=== PATIENT | female | born 1940 | race Caucasian/White ===

== ENCOUNTER 2023-09-07 09:15 | Outpatient (CLI) | payer MEDICARE, SELFPAY ==
[2023-09-07 18:27] LABS: Basophils Percent Auto 0.1 % (0.2-1.2); Hematocrit 39.4 % (37.0-47.0); Immature Granulocyte Absolute 0.06 K/mm3 (0.00-0.031); Immature Granulocyte Percent A 0.7 % (0-0.5); Lymphocytes Absolute Auto 2.05 K/mm3 (0.9-3.2); Lymphocytes Percent Auto 24.8 % (18.3-44.2); Mean Corpuscular HGB Conc 30.5 g/dl (32-36); Mean Corpuscular Hemoglobin 29.9 pg (26-34); Mean Platelet Volume 9.3 fl (7.4-10.4); Monocytes Absolute Auto 0.7 K/mm3 (0.1-0.6); Monocytes Percent Auto 8.2 % (2.6-8.5); Neutrophils Absolute Auto 5.5 K/mm3 (1.3-6.7); Neutrophils Percent Auto 66.2 % (45.5-73.1); Platelet Count Result 321 k/mm3 (150-375); Red Blood Count 4.02 M/mm3 (4.2-5.4); Red Cell Distribution Width 13.9 % (11.5-14.5); White Blood Count 8.3 K/mm3 (4.5-10.0)
[2023-09-07 18:34] LABS: Anion Gap 11 mmol/L (8-16); Blood Urea Nitrogen 31 mg/dL (7-17); Calcium 9.8 mg/dL (8.4-10.2); Carbon Dioxide 26 mmol/L (22-30); Chloride 105 mmol/L (98-107); Estimated Glomerular Filt Rate 60; Glucose 81 mg/dL (65-110); Potassium 4.5 mmol/L (3.4-5.0); Sodium 142 mmol/L (137-145)
[2023-09-07 19:30] LABS: Folic Acid 6.2 ng/mL (2.76->20)
== END 2023-09-07 09:16 | disposition home or self-care (01) ==
LOC: ANHGOSHLAB 09:18
PROVIDERS: PCP Internal Medicine; Visit Provider Internal Medicine Hematology & Oncology
DX: D64.9 Anemia, unspecified (principal)
CPT/HCPCS: 36415; 80048; 82607; 82746; 85025

== ENCOUNTER 2025-06-28 09:11 | Outpatient (CLI) | payer MEDICARE, SELFPAY ==
--- OUTSIDE RECORDS SUMMARY | 2024-11-29 10:15 | XMS_ITS ---
Author Organization [facility] Office Address [address] [facility] 61 [facility] [address] [place] [address] Care Team Providers Care Tool Mechanic Name Role Phone Antoni Shukri Unavailable [phone] Social History Sex Assigned At : Social History Observation Description Sex Assigned At Female Encounters Encounter Location Date Provider Diagnosis [place] [facility] 2043 [facility] 15 [place] [address] 11/29/2024 Shukri Corrales Plan Of Treatment Next Appt Details Provider Name:Shukri Corrales , 08/15/2025 02:00:00 PM, [address] [address], [place], [place], [facility], Progress Notes * Mandi MEEHANOB:1940 (85 yo F)Acc No.[id number]:11/29/2024 Progress Notes Patient: Qamar GALLOWAY Provider: Lora ESPAÑA MD, Deepak.Bette.C.P, F.A.S.N. :1940 A ge:84 Y S ex:Female Date:11/29/2024 Address:[address] [place] [address] Subjective: * Chief Complaints: * * Medical History: Objective: * Vitals: Assessment: Plan: * Treatment: * Billing Information: * Visit Code: * Procedure Codes: * Electronic signature of Callum Corrales MD on 06/28/2025 at 09:30 AM CDT Sign off status: Pending * Provider: Lora ESPAÑA MD, Deepak.Bette.C.P, F.A.S.N. Date: 0 11/29/2024 Generated for Printing/Faxing/eTransmitting on: 0 06/28/2025 09:30 AM CDT
--- OUTSIDE RECORDS SUMMARY | 2025-01-19 10:45 | XMS_ITS ---
Author Organization [facility] Office Address [address] [place] [address] Care Team Providers Care Interior Systems Carpenter Name Role Phone Antoni Shukri Unavailable [phone] Social History Sex Assigned At : Social History Observation Description Sex Assigned At Female Problems Problem Type SNOMED Code ICD Code Onset Dates Problem Status W/U Status Risk Notes Problem Edema (03801040) Edema, unspecified (R60.9) Active confirmed Problem Major depression, single episode (10664073) Major depressive disorder, single episode, unspecified (F32.9) Active confirmed Problem Heart murmur (finding) (81475833) Cardiac murmur, unspecified (R01.1) Active confirmed Encounters Encounter Location Date Provider Diagnosis [place] [facility] 2043 [facility] 15 [place] [address] 01/19/2025 Shukri Corrales Chronic kidney disea se, stage 3a N18.31 ; Type 2 diabetes mellitus with diabetic chronic kidney disease E11.22 ; Essential hypertension I10 ; Gastro-esophageal reflux disease without esophagitis K21.9 ; Hyperlipidemia, unspecified E78.5 ; Renal osteodystrophy N25.0 ; Secondary hyperparathyroidism of renal origin N25.81 ; Edema, unspecified R60.9 ; Major depressive disorder, single episode, unspecified F32.9 and Cardiac murmur, unspecified R01.1 Assessments Encounter Date Diagnosis (ICD Code) Assessment Notes Treatment Notes Treatment Clinical Notes Section Notes 01/19/2025 Chronic kidney disea se, stage 3a (ICD-10 - N18.31) 01/19/2025 Type 2 diabetes mellitus with diabetic chronic kidney disease (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) 01/19/2025 Essential hypertensi on (ICD-10 - I10) 01/19/2025 Gastro-esophageal reflux disease without esophagitis (ICD-10 - K21.9) 01/19/2025 Hyperlipidemia, unspecified (ICD-10 - E78.5) 01/19/2025 Renal osteodystrophy (ICD-10 - N25.0) 01/19/2025 Secondary hyperparathyroidism of renal origin (ICD-10 - N25.81) 01/19/2025 Edema, unspecified (ICD-10 - R60.9) 01/19/2025 Major depressive disorder, single episode, unspecified (ICD-10 - F32.9) 01/19/2025 Cardiac murmur, unspecified (ICD-10 - R01.1) Plan Of Treatment Next Appt Details Provider Name:Shukri Antoni , 08/15/2025 02:00:00 PM, 2043 [facility] 15, [place], [address], Progress Notes * Mandi CABRERAOB:1940 (85 yo F)Acc No.[id number]:01/19/2025 Progress Notes Patient: Qamar GALLOWAY Provider: Lora ESPAÑA MD, F.A.C.P, F.A.S.N. :1940 A ge:84 Y S ex:Female Date:01/19/2025 Address:[address] [place] [address] Subjective: * Chief Complaints: * * Medical History: Objective: * Vitals: Assessment: * Assessment: 1. C hronic kidney disease, stage 3a - N18.31 (Primary) 2 . 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 E ssential hypertension - I10 4 . G khushbu-esophageal reflux disease without esophagitis - K21.9 5. H yperlipidemia, unspecified - E78.5 6 . R enal osteodystrophy - N25.0 7 . S econdary hyperparathyroidism of renal origin - N25.81 ? 8 . E david, unspecified - R60.9 9 . M ajor depressive disorder, single episode, unspecified - F32.9 1 0. C ardiac murmur, unspecified - R01.1 ? Plan: * Treatment: * Billing Information: * Visit Code: 78801 Office Visit, Est Pt., Level 4. * Procedure Codes: * Electronic signature of Callum Corrales MD on 06/28/2025 at 09:29 AM CDT Sign off status: Pending * Provider: Lora ESPAÑA MD, F.A.C.P, F.A.S.N. Date: 0 01/19/2025 Generated for Printing/Faxing/eTransmitting on: 0 06/28/2025 09:29 AM CDT
--- OUTSIDE RECORDS SUMMARY | 2025-03-23 08:30 | XMS_ITS ---
Author Organization [facility] Office Address [address] [address] [place] [address] Care Team Providers Care Manager Heart Name Role Phone Antoni Shukri Unavailable [phone] Social History Sex Assigned At : Social History Observation Description Sex Assigned At Female Encounters Encounter Location Date Provider Diagnosis [place] [facility] [address] [facility] 15 [place] [address] 03/23/2025 Shukri Corrales Chronic kidney disea se, stage [...] Treatment Notes Treatment Clinical Notes Section Notes 03/23/2025 Chronic kidney disea se, stage 3a (ICD-10 - N18.31) 03/23/2025 Type 2 diabetes mellitus with diabetic chronic kidney disease (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) 03/23/2025 Essential hypertensi on (ICD-10 - I10) 03/23/2025 Gastro-esophageal reflux disease without esophagitis (ICD-10 - K21.9) 03/23/2025 Hyperlipidemia, unspecified (ICD-10 - E78.5) 03/23/2025 Renal osteodystrophy (ICD-10 - N25.0) 03/23/2025 Secondary hyperparathyroidism of renal origin (ICD-10 - N25.81) 03/23/2025 Edema, unspecified (ICD-10 - R60.9) 03/23/2025 Major depressive disorder, single episode, unspecified (ICD-10 - F32.9) 03/23/2025 Cardiac murmur, unspecified (ICD-10 - R01.1) Plan Of Treatment Next Appt Details Provider Name:Shukri Antoni , 08/15/2025 02:00:00 PM, 2043 [facility], [facility] 15, [place], [address], Progress Notes * Mandi CABRERAOB:1940 (85 yo F)Acc No.[id number]:03/23/2025 Progress Notes Patient: Qamar GALLOWAY Provider: Lora ESPAÑA MD, F.A.C.P, F.A.S.N. :1940 A ge:84 Y S ex:Female Date:03/23/2025 Address:[address] [place] [address] Subjective: * Chief Complaints: * * Medical [...] Treatment: * Billing Information: * Visit Code: 96825 Office Visit, Est Pt., Level 4. * Procedure Codes: * Electronic signature of Callum Corrales MD on 06/28/2025 at 09:30 AM CDT Sign off status: Pending * Provider: Lora ESPAÑA MD, Deepak.Bette.C.P, F.A.S.N. Date: 03/23/2025 Generated for Printing/Faxing/eTransmitting on: 0 06/28/2025 09:30 AM CDT
--- OUTSIDE RECORDS SUMMARY | 2025-05-22 09:45 | XMS_ITS ---
Author Organization [facility] Office Address 1400 [facility] 61 [facility] [address] [place] [address] Care Team Providers Care Core Java Software Engineer Name Role Phone Antoni Shukri Unavailable [phone] Social History Sex Assigned At : Social History Observation Description Sex Assigned At Female Encounters Encounter Location Date Provider Diagnosis [place] [facility] 2043 [facility] 15 [place] [address] 05/22/2025 Shukri Corrales Plan Of Treatment Next Appt Details Provider Name:Shukri Corrales , 08/15/2025 02:00:00 PM, [address] [address], [place], [address], Progress Notes * Mandi MEEHANOB:1940 (85 yo F)Acc No.[id number]:05/22/2025 Progress Notes Patient: Qamar GALLOWAY Provider: Lora ESPAÑA MD, Deepak.Bette.C.P, F.A.S.N. :1940 A ge:84 Y S ex:Female Date:05/22/2025 Address:[address] [place] [address] Subjective: * Chief Complaints: * * Medical History: Objective: * Vitals: Assessment: Plan: * Treatment: * Billing Information: * Visit Code: * Procedure Codes: * Electronic signature of Callum Corrales MD on 06/28/2025 at 09:30 AM CDT Sign off status: Pending * Provider: Lora ESPAÑA MD, Deepak.Bette.C.P, F.A.S.N. Date: 0 05/22/2025 Generated for Printing/Faxing/eTransmitting on: 0 06/28/2025 09:30 AM CDT
--- OUTSIDE RECORDS SUMMARY | 2025-05-23 09:00 | XMS_ITS ---
Author Organization [facility] Address [address] [address] [place] [address] Care Team Providers Care Crystallizer Operator Name Role Phone Antoni Shukri Unavailable [phone] Social History Sex Assigned At : Social History Observation Description Sex Assigned At Female Encounters Encounter Location Date Provider Diagnosis [place] [facility] 2043 [facility] 15 [place] [address] 05/23/2025 Shukri Corrales Chronic kidney disea se, stage [...] Treatment Notes Treatment Clinical Notes Section Notes 05/23/2025 Chronic kidney disea se, stage 3a (ICD-10 - N18.31) 05/23/2025 Type 2 diabetes mellitus with diabetic chronic kidney disease (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) 05/23/2025 Essential hypertensi on (ICD-10 - I10) 05/23/2025 Gastro-esophageal reflux disease without esophagitis (ICD-10 - K21.9) 05/23/2025 Hyperlipidemia, unspecified (ICD-10 - E78.5) 05/23/2025 Renal osteodystrophy (ICD-10 - N25.0) 05/23/2025 Secondary hyperparathyroidism of renal origin (ICD-10 - N25.81) 05/23/2025 Edema, unspecified (ICD-10 - R60.9) 05/23/2025 Major depressive disorder, single episode, unspecified (ICD-10 - F32.9) 05/23/2025 Cardiac murmur, unspecified (ICD-10 - R01.1) Plan Of Treatment Next Appt Details Provider Name:Shukri Antoni , 08/15/2025 02:00:00 PM, 2043 [facility], [facility] 15, [place], [address], Progress Notes * Mandi CABRERAOB:1940 (85 yo F)Acc No.[id number]:05/23/2025 Progress Notes Patient: Qamar GALLOWAY Provider: Lora ESPAÑA MD, F.A.C.P, F.A.S.N. :1940 A ge:84 Y S ex:Female Date:05/23/2025 Address:[address] [place] [address] Subjective: * Chief Complaints: * * Medical [...] Treatment: * Billing Information: * Visit Code: 42296 Office Visit, Est Pt., Level 4. * Procedure Codes: * Electronic signature of Callum Corrales MD on 06/28/2025 at 09:30 AM CDT Sign off status: Pending * Provider: Lora ESPAÑA MD, Deepak.Bette.C.P, F.A.S.N. Date: 05/23/2025 Generated for Printing/Faxing/eTransmitting on: 0 06/28/2025 09:30 AM CDT
--- NOTE | ~2025-06-28 | NM_ITS ---
EXAMINATION: NM edelmira stress w perfusion DATE: 06/28/2025 12:04 INDICATION: Encounter for preprocedural cardiovascular examination TECHNIQUE: Rest images were obtained following intravenous administration of 10.07 mCi Tc99m tetrofosmin (Myoview). The patient was infused intravenously with Lexiscan (Regadenoson). Then, 31.7 mCi Tc99m tetrofosmin (Myoview) was administered intravenously, and stress images were obtained. Data was rec onstructed into short axis and horizontal and vertical long axis SPECT images. Gated SPECT images were also obtained. COMPARISON: None. FINDINGS: There is no definite reversible or fixed perfusion abnormality to suggest ischemia or infarction. There is normal left ventricular chamber size, wall motion and ejection fraction. Left ventricular ejection fraction measures >70%. IMPRESSION: 1. Normal myocardial perfusion at rest and during stress. 2. Left ventricular ejection fraction measuring >70%. Reviewed, dictated and finalized at location A.
--- NOTE | 2025-06-28 09:24 | EST_ITS ---
Patient Info Name: Qamar Meehan Age: 85 years : 1940 Gender: Female Ht: 63 in Wt: 139 lbs BSA: 1.68 m2 HR: 56 bpm BP: 135 / 67 mmHg Exam Date: 06/28/2025 9:24 AM Patient Status: O Admit Date: 06/28/2025 Exam Type: CA stress edelmira w NM A regadenoson stress test was performed. Staff Referring Physician: Ajith Mann DO Attending Provider: Ajith Mann DO Exercise Technologist: Amina Smith Exercise Physician: Ajith Mann DO Summary 1. 1. Negative lexiscan stress test for ischemic ST changes by ECG criteria. 2. 2. Stable hemodynamics throughout the test. 3. 3. Nuclear scan to follow and will be reported separately. Please correlate with it. 4. 4. Patient informed of the above results. Protocol: Lexiscan Stress ECG Details Stage: REST Duration (min): 0 min : 52 sec HR (bpm): 58 SBP (mmHg): 135 DBP (mmHg): 67 Stage: REST Duration (min): 6 min : 51 sec HR (bpm): 61 SBP (mmHg): 135 DBP (mmHg): 67 Stage: STAGE 1 Duration (min): 1 min : 0 sec HR (bpm): 79 SBP (mmHg): 116 DBP (mmHg): 66 Stage: RECOVERY Duration (min): 1 min : 0 sec HR (bpm): 87 SBP (mmHg): 116 DBP (mmHg): 66 Stage: RECOVERY Duration (min): 2 min : 0 sec HR (bpm): 76 SBP (mmHg): 116 DBP (mmHg): 66 Stage: RECOVERY Duration (min): 3 min : 0 sec HR (bpm): 81 SBP (mmHg): 116 DBP (mmHg): 66 Stage: RECOVERY Duration (min): 4 min : 0 sec HR (bpm): 76 SBP (mmHg): 116 DBP (mmHg): 66 Stage: RECOVERY Duration (min): 5 min : 0 sec HR (bpm): 75 SBP (mmHg): 142 DBP (mmHg): 60 Stage: RECOVERY Duration (min): 6 min : 0 sec HR (bpm): 72 SBP (mmHg): 142 DBP (mmHg): 60 Stage: RECOVERY Duration (min): 7 min : 0 sec HR (bpm): 76 SBP (mmHg): 140 DBP (mmHg): 58 Stage: RECOVERY Duration (min): 7 min : 3 sec HR (bpm): 75 SBP (mmHg): 140 DBP (mmHg): 58 Rest HR: 61 bpm Peak HR: 90 bpm Rest Sys BP: 135 mmHg Peak Sys BP: 142 mmHg Max Pred HR: 137 bpm % Max Pred HR: 66 % Target HR: 116 bpm Max RPP: 12,780 bpm*mmHg Termination Reason: Completed protocol Cardiac Symptoms: Shortness of breath, Nausea Total Time: 1 min : 0 sec Rest Negron BP: 67 mmHg Peak Negron BP: 60 mmHg Total Dose: 0.4 mg Resting ECG Sinus rhythm. Stress ECG No ST changes. Arrhythmias None. Report Signatures
--- OUTSIDE RECORDS SUMMARY | 2025-06-28 09:30 | XMS_ITS | Clinical Summary ---
Author Organization [facility] Address [address] [place] [address] Care Team Providers Care New Car Sales Manager Name Role Phone Beulah Johnson MD Primary Care Provide r Allergies Active Allergy Reactions Criticality Noted Date Comments Losartan Other (See comments) Low 02/02/2023 Sores in mouth Medications busPIRone (BUSPAR) 15 mg tabletIndicatio ns:Generalized Anxiety Disorder 05/02/2018 Active furosemide (LASIX) 20 mg tablet 05/04/2018 Active levothyroxine (SYNTHROID, LEVOTHROID) 50 mcg tablet 05/02/2018 Active lisinopril-hydr oCHLOROthiazide (PRINZIDE,ZESTO RETIC) 20-12.5 mg per tabletIndicatio ns:hypertension 05/03/2018 Act lisandro naproxen (NAPROSYN) 375 mg tablet 04/06/2018 Active BYSTOLIC 20 mg tablet 04/05/2018 Active lidocaine (LIDODERM) 5 % Place 1 patch on the skin daily for 7 days Remove & discard patch within 12 hours or as directed by MD. 7 patch 08/13/2023 Active acetaminophen (TYLENOL) 325 mg tablet Take 1 tablet (325 mg total) by mouth every 4 (four) hours as needed Active amLODIPine (NORVASC) 10 mg tablet Take 1 tablet (10 mg total) by mouth daily Active calcitRIOL (ROCALTROL) 0.25 mcg capsule Take by mouth daily Active ergocalciferol (VITAMIN D) 50,000 unit capsule Take 1 capsule (50,000 Units total) by mouth once a week Active escitalopram (LEXAPRO) 10 mg tablet Take 1 tablet (10 mg total) by mouth daily Active ferrous sulfate 134 mg (27 mg of elemental iron) tablet Take 1 tablet (134 mg total) by mouth Active LORazepam (ATIVAN) 1 mg tablet Take 1 tablet (1 mg total) by mouth daily Active losartan (Cozaar) 100 mg tablet daily 11/05/2022 Active losartan (COZAAR) 50 mg tablet Take 1 tablet (50 mg total) by mouth daily Active meloxicam (MOBIC) 7.5 mg tablet Take 1 tablet (7.5 mg total) by mouth daily as needed 02/14/2024 Active Lagevrio, EUA, 200 mg capsule (EUA) TAKE 4 CAPSULES BY MOUTH EVERY 12 HOURS FOR 5 DAYS 03/16/2024 Active omeprazole (PriLOSEC) 10 mg capsule Take by mouth daily Active rosuvastatin (CRESTOR) 40 mg tablet Take 1 tablet (40 mg total) by mouth daily 01/20/2024 Active Active Problems Problem Noted Date Diagnosed Date Diplopia 05/22/2024 Assessment & Plan (05/22/2024 11:09 AM CDT): I think some of her symptoms may be due to the cataract in the left eye (sx improve when covering left eye (OS)) No Ana's Known thyroid disease (managed with PCP) Moderate EP with low reserves, possible mild /early SES Outside MRI/MRA with and without contrast was normal Letter to PCP - recommend Myasthenia Panel and TSI Hypermetropia 05/22/2024 Assessment & Plan (05/22/2024 11:02 AM CDT): Release updated glasses Rx Combined forms of age-related cataract Assessment & Plan (05/22/2024 11:01 AM CDT): F/u with her local Tester Electronic Scale Essential hypertension 04/05/2024 Gastro-esophageal reflux disease without esophag itis 04/05/2024 Hyperlipidemia 04/05/2024 Stage 2 chronic kidney disease 04/05/2024 Sensorineural hearing loss, asymmetrical 018 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 Urge incontinence 03/23/2012 Surgical History Surgery Date Site/Laterality Comments NO PAST SURGERIES BREAST BIOPSY 09/14/2019 Left BREAST BIOPSY 12/08/2019 Right Medical History Medical History Date Comments Allergy seasonal Anxiety Hypertension HL (hearing loss) Tinnitus Family History Medical History Relation Name Comments Heart disease Father Heart disease Mother Relation Name Status Comments Father Mother Social History Tobacco Use Types Packs/Day Years Used Date Smoking Tobacco: Never Smokeless Tobacco: Never Tobacco Cessation:Counseling Given: Not Answered Personal Safety Answer Date Recorded Have you ever been in or are you currently in a harmful physical or emotional relationship or is someone making you feel afraid or unsafe? Denies 08/13/2023 Comments Unknown Sex and Gender Information Value Date Recorded Sex Assigned at Not on file Legal Sex Female 3:51 AM RETENTION REPRESENTATIVE Gender Identity Not on file Sexual Orientation Not on file Obstetrics History Last Filed Vital Signs Vital Sign Reading Time Taken Comments Blood Pressure 142/58 04/05/2024 10:58 AM CDT Pulse 78 04/05/2024 10:58 AM CDT Temperature 36.8 C (98.2 F) 08/13/2023 2:53 PM CDT Respiratory Rate 16 08/13/2023 2:53 PM CDT Oxygen Saturation 98% 04/05/2024 10:58 AM CDT Inhaled Oxygen Concentration - - Weight 63.5 kg (140 lb) 04/05/2024 10:58 AM CDT Height 160 cm (5' 3) 04/05/2024 10:58 AM CDT Body Mass Index 24.8 04/05/2024 10:58 AM CDT Plan of Treatment Health Maintenance Due Date Last Done Comments Depression Screening 1940 Fall Risk Assessment 1940 Osteoporosis Screening-Bone Density Scan 1940 DTaP/Tdap/Td Vaccine (1 - Tdap) 1953 Hepatitis B Screening 1960 Pneumococcal vaccine 65+ (1 of 1 - PCV) 1992 Zoster Vaccine (1 of 2) 1992 Well Visit 65+ 2007 Covid-19 Vaccine (3 - 2023- season) 2024, 11/14/2020 Influenza Vaccine (#1) 2025 Insurance MEDICARE [facility] MEDICARE [facility] Care Teams New Car Sales Manager Relationship Specialty Start Date End Date Beulah Johnson MD 2043 [facility] 15 [place] [address] PCP - General Internal Medicine 08/13/23
--- OUTSIDE RECORDS SUMMARY | 2025-06-28 09:30 | XMS_ITS | Patient Health Record ---
Author Organization [facility] Address [address] [facility] [address] [facility] [place] [address] [place] [address] Care Team Providers Care Merchandise Associate Name Role Phone Shukri Corrales Unavailable [phone] Reason For Referral No Information Medications Medication SIG (Take, Route, Frequency, Duration) Notes Start Date End Date Status Calcitriol 0.25 MCG TAKE 1 CAPSULE BY MO UTH EVERY DAY; Duration: 90 Active Furosemide 40 MG 1 tablet Orally twic e a day; Duration: 90 days 03/23/2025 03/18/2026 Active Losartan Potassium 50 MG TAKE 1 TABLET B Y MOUTH EVERY DAY; Duration: 90 days Active amLODIPine Besylate 10 MG TAKE 1 TABLET BY MOUTH EVERY DAY; Duration: 90 Active Cozaar 100 MG 1 tablet Orally Once a day; Duration: 90 days 11/05/2022 Active Losartan Potassium 100 MG 1 tablet Orall y Once a day; Duration: 90 days 01/19/2025 Active Lasix 20 MG 1 tablet Orally Once a day; Duration: 90 day(s) 01/19/2025 10/15/2025 Active Vitamin D (Ergocalciferol) 1.25 MG (73804 UT) 1 capsule Orally ONCE A WEEK; Duration: 90 days 01/14/2026 Active Social History Sex Assigned At : Social History Observation Description Sex Assigned At Female Problems Problem Type SNOMED Code ICD Code Onset Dates Problem Status W/U Status Risk Notes Problem Diabetic renal disease (899049008) Type 2 diabetes mellitus with diabetic chronic kidney disease (E11.22) Active confirmed Problem Hyperlipidemia (76602894) Hyperlipidemia, unspecified (E78.5) Active confirmed Problem Major depression, single episode (43532971) Major depressive disorder, single episode, unspecified (F32.9) Active confirmed Problem Gastro-esophageal reflux disease without esophagitis (761823676) Gastro-esophageal reflux disease without esophagitis (K21.9) Active confirmed Problem Renal osteodystrophy (17430807) Renal osteodystrophy (N25.0) Active confirmed Problem Secondary hyperparathyroidism of renal origin (93067608) 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) Active confirmed Problem Heart murmur (finding) (78836575) Cardiac murmur, unspecified (R01.1) Active confirmed Problem Edema (32895434) Edema, unspecif ied (R60.9) Active confirmed Problem Essential hypertension (22318161) Essential hypertension (I10) Active confirmed Problem Chronic kidney disease stage 3A (disorder) (734905161) Chronic kidney disease, stage 3a (N18.31) Active confirmed Encounters Encounter Location Date Provider Diagnosis [place] [facility] [address] [place] [address] 07/14/2024 Shukri [facility] Office [address] [address] 07/26/2024 Shukri Corrales Chronic kidney disea se, stage 3a N18.31 ; Essential hypertension I10 ; Renal osteodystrophy N25.0 ; Gastro-esophageal reflux disease without esophagitis K21.9 and Hyperlipidemia, unspecified E78.5 [place] [facility] [address] [address] 11/01/2024 Shukri [facility] Office [address] [place] [address] 11/24/2024 Shukri Corrales Chronic kidney disea se, stage 3a N18.31 ; Essential hypertension I10 ; Renal osteodystrophy N25.0 ; Type 2 diabetes mellitus with diabetic chronic kidney disease E11.22 ; Secondary hyperparathyroidism of renal origin N25.81 and Hyperlipidemia, unspecified E78.5 [place] [facility] [address] [address] 01/19/2025 Shukri Corrales Chronic kidney disea se, [...] unspecified F32.9 and Cardiac murmur, unspecified R01.1 [place] [facility] [address] [address] 03/23/2025 Shukri Corrales Chronic kidney disea se, [...] unspecified F32.9 and Cardiac murmur, unspecified R01.1 [place] [facility] [address] [address] 05/23/2025 Shukri Corrales Chronic kidney disea se, [...] unspecified F32.9 and Cardiac murmur, unspecified R01.1 [place] [facility] [address] [address] 10/16/2024 Shukri [facility] Office [address] [address] 11/02/2024 Shukri Corrales [place] [facility] [address] [address] 11/02/2024 Shukri [facility] Office [address] [address] 01/19/2025 Shukri [facility] Office [address] [address] 03/23/2025 Shukri Corrales [place] [facility] [address] [address] 07/11/2024 Shukri Corrales [place] [facility] [address] [address] 07/26/2024 Shukri Corrales [place] [facility] [address] [address] 09/15/2024 Shukri Corrales Assessments Encounter Date Diagnosis (ICD Code) Assessment Notes Treatment Notes Treatment Clinical Notes Section Notes 07/26/2024 Chronic kidney disea se, stage 3a (ICD-10 - N18.31) 01/19/2025 Chronic kidney disea se, stage 3a (ICD-10 - N18.31) 03/23/2025 Chronic kidney disea se, stage 3a (ICD-10 - N18.31) 05/23/2025 Chronic kidney disea se, stage 3a (ICD-10 - N18.31) 11/24/2024 Essential hypertensi on (ICD-10 - I10) 11/24/2024 Chronic kidney disea se, stage 3a (ICD-10 - N18.31) 11/24/2024 Renal osteodystrophy (ICD-10 - N25.0) 05/23/2025 Type 2 diabetes mellitus with diabetic chronic kidney disease (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) 03/23/2025 Type 2 diabetes mellitus with diabetic chronic kidney disease (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) 07/26/2024 Essential hypertensi on (ICD-10 - I10) 01/19/2025 Type 2 diabetes mellitus with diabetic chronic kidney disease (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) 07/26/2024 Renal osteodystrophy (ICD-10 - N25.0) 01/19/2025 Essential hypertensi on (ICD-10 - I10) 03/23/2025 Essential hypertensi on (ICD-10 - I10) 05/23/2025 Essential hypertensi on (ICD-10 - I10) 11/24/2024 Type 2 diabetes mellitus with diabetic chronic kidney disease (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) 11/24/2024 Secondary hyperparathyroidism of renal origin (ICD-10 - N25.81) 05/23/2025 Gastro-esophageal reflux disease without esophagitis (ICD-10 - K21.9) 03/23/2025 Gastro-esophageal reflux disease without esophagitis (ICD-10 - K21.9) 01/19/2025 Gastro-esophageal reflux disease without esophagitis (ICD-10 - K21.9) 07/26/2024 Gastro-esophageal reflux disease without esophagitis (ICD-10 - K21.9) 07/26/2024 Hyperlipidemia, unspecified (ICD-10 - E78.5) 01/19/2025 Hyperlipidemia, unspecified (ICD-10 - E78.5) 03/23/2025 Hyperlipidemia, unspecified (ICD-10 - E78.5) 05/23/2025 Hyperlipidemia, unspecified (ICD-10 - E78.5) 11/24/2024 Hyperlipidemia, unspecified (ICD-10 - E78.5) 03/23/2025 Renal osteodystrophy (ICD-10 - N25.0) 05/23/2025 Renal osteodystrophy (ICD-10 - N25.0) 01/19/2025 Renal osteodystrophy (ICD-10 - N25.0) 01/19/2025 Secondary hyperparathyroidism of renal origin (ICD-10 - N25.81) 05/23/2025 Secondary hyperparathyroidism of renal origin (ICD-10 - N25.81) 03/23/2025 Secondary hyperparathyroidism of renal origin (ICD-10 - N25.81) 05/23/2025 Edema, unspecified (ICD-10 - R60.9) 03/23/2025 Edema, unspecified (ICD-10 - R60.9) 01/19/2025 Edema, unspecified (ICD-10 - R60.9) 03/23/2025 Major depressive disorder, single episode, unspecified (ICD-10 - F32.9) 01/19/2025 Major depressive disorder, single episode, unspecified (ICD-10 - F32.9) 05/23/2025 Major depressive disorder, single episode, unspecified (ICD-10 - F32.9) 03/23/2025 Cardiac murmur, unspecified (ICD-10 - R01.1) 05/23/2025 Cardiac murmur, unspecified (ICD-10 - R01.1) 01/19/2025 Cardiac murmur, unspecified (ICD-10 - R01.1) Plan Of Treatment Next Appt Details Provider Name:Shukri Corrales , 08/15/2025 02:00:00 PM, [address], [place], [address],
--- OUTSIDE RECORDS SUMMARY | 2025-06-28 09:30 | XMS_ITS | Clinical Summary ---
Author Organization [facility] Desire Rodrigues Address [address] [place] [address] Care Team Providers Care Box Car Bracer Name Role Phone Stiven Johnson MD Primary Care Provider Allergies Active Allergy Reactions Criticality Noted Date Comments Losartan Other (See Comments) Low 02/02/2023 Sores in mouth Medications amLODIPine (NORVASC) 10 mg tablet Take 10 mg by mouth daily. 11/30/2022 Active busPIRone (BUSPAR) 15 mg Tablet 10/27/2022 Active calcitRIOL (ROCALTROL) 0.25 mcg capsule Take 0.25 mcg by mouth daily. 01/01/2023 Active ergocalciferol (VITAMIN D2) 50,000 unit capsule TAKE 1 CAPSULE BY MOUTH 1 TIME A WEEK 01/01/2023 Active escitalopram oxalate (LEXAPRO) 10 mg tablet Take 10 mg by mouth daily. 12/07/2022 Active levothyroxine 50 mcg tablet Take 50 mcg by mouth daily. 01/11/2023 Active LORazepam (ATIVAN) 1 mg tablet TAKE 1 TABLET BY MOUTH EVERY DAY NEEDED 12/31/2022 Active losartan (COZAAR) 100 mg tablet 11/05/2022 Active rosuvastatin (CRESTOR) 40 mg tablet Take 40 mg by mouth daily. 01/11/2023 Active omeprazole (PriLOSEC) 10 mg Capsule, Delayed Release(E.C.) Take by mouth daily. Active ferrous sulfate 134 mg (27 mg iron) Tablet Take 134 mg by mouth. Active acetaminophen (TYLENOL) 325 mg tablet Take 325 mg by mouth every 4 hours as needed. Active Active Problems No known active problems Family History Medical History Relation Name Comments Heart Disease Father Heart Disease Mother Relation Name Status Comments Father Mother Sister Alive Son 1 Alive Son 2 Alive Social History Tobacco Use Types Packs/Day Years Used Date Smoking Tobacco: Never Smokeless Tobacco: Never Tobacco Cessation:Counseling Given: Not Answered Alcohol Use Standard Drinks/Week Comments Not Currently 0 (1 standard drink = 0.6 oz pur e alcohol) Comments Unknown Sex and Gender Information Value Date Recorded Sex Assigned at Not on file Legal Sex Female 4:04 PM TRUST MANAGER Gender Identity Not on file Sexual Orientation Not on file Last Filed Vital Signs Vital Sign Reading Time Taken Comments Blood Pressure 136/56 09/09/2023 2:28 PM TRUST MANAGER Pulse 77 09/09/2023 2:28 PM TRUST MANAGER Temperature 36.3 C (97.3 F) 09/09/2023 2:28 PM TRUST MANAGER Respiratory Rate 10 09/09/2023 2:28 PM TRUST MANAGER Oxygen Saturation 99% 09/09/2023 2:28 PM TRUST MANAGER Inhaled Oxygen Concentration - - Weight 63 kg (139 lb) 09/09/2023 2:28 PM TRUST MANAGER Height 160 cm (5' 3) 02/02/2023 3:55 PM CDT Body Mass Index 24.62 02/02/2023 3:55 PM CDT Plan of Treatment Health Maintenance Due Date Last Done Comments DTAP/TDAP/TD VACCINES (1 - Tdap) 1961 PNEUMOCOCCAL VACCINE 50+ YEA RS (1 of 1 - PCV) 1992 ZOSTER VACCINE (1 of 2) 1992 RSV VACCINE (60+ or ) (1 - 1-dose 75+ series) 2017 INFLUENZA VACCINE (#1) 2025 OSTEOPOROSIS SCREENING 06/16/2029 06/16/2024, 2021 COLORECTAL SCREENING Discontinued 02/28/2021, 02/29/20 21 Colorectal Cancer Screening Discontinued FIT-DNA Q 3 years Discontinued FIT/FOBT Q 1 year Discontinued Flex Sig/CT Colonography Q 5 years Discontinued Insurance MEDICARE PART A AND B [facility] [id number] Member Subscriber Plan / Payer (Ef fective 2022-Present) Name:Qamar Meehan Relation to Subscriber:Self Name:Qamar Meehan Payer ID:[id number] (NAIC) Group ID:[id number] Type:Supplemental Address: [place] [id number] MEDICARE PART A AND B [facility] [id number] Care Teams Box Car Bracer Relationship Specialty Start Date End Date Stiven Johnson MD PCP - General Internal Medicine 02/02/23
--- OUTSIDE RECORDS SUMMARY | 2025-06-28 09:31 | XMS_ITS | Encounter Summary ---
Author Organization [facility] Healthcare Address [address] [place] [address] Care Team Providers Care Top Lift Compressor Name Role Phone Hi Duarte MD Primary Care Provider [phone] Beulah Johnson MD Primary Care Provide r Encounter Details Date Type Department Care Team (Late st Contact Info) Description 10/25/2019 Orders Only [facility] Health Information Management [address] [place] [address] Scanning, Provider Social History Tobacco Use Types Packs/Day Years Used Date Smoking Tobacco: Never Assessed Comments Unknown Sex and Gender Information Value Date Recorded Sex Assigned at Not on file Legal Sex Female 3:51 AM BRAINER Gender Identity Not on file Sexual Orientation Not on file documented as of this encounter Plan of Treatment Not on file documented as of this encounter Procedures Procedure Name Priority Date/Time Associated Diagnosis Comments SCAN - OTHER ORDERS 10/25/2019 documented in this encounter Results * SCAN - OTHER ORDERS (10/25/2019) us Provider Scanning Final Result documented in this encounter Visit Diagnoses Not on filedocumented in this encounter Care Teams Top Lift Compressor Relationship Specialty Start Date End Date Hi Duarte MD [address] [place] [address] PCP - General 08/10/17 08/12/23 Beulah Johnson MD [address] [address] PCP - General Internal Medicine 08/13/23 documented as of this encounter
== END 2025-06-28 09:12 | disposition home or self-care (01) ==
PROVIDERS: PCP Internal Medicine; Visit Provider Internal Medicine Cardiovascular Disease
DX: Z01.810 Encounter for preprocedural cardiovascular examination (principal); I51.9 Heart disease, unspecified
CPT/HCPCS: 78452; 93017; A9502; J2785

== ENCOUNTER 2025-07-12 10:46 | Outpatient (CLI) | payer MEDICARE, SELFPAY ==
--- OUTSIDE RECORDS SUMMARY | 2025-07-12 11:29 | XMS_ITS | Encounter Summary ---
Author Organization [facility] Healthcare Address [address] [place] [address] Care Team Providers Care Environmental Health Aide Name Role Phone Hi Duarte MD Primary Care Provider [phone] Beulah Johnson MD Primary Care Provide r Encounter Details Date Type Department Care Team (Late st Contact Info) Description 10/25/2019 Orders Only [facility] Health Information Management [address] [place] [address] Scanning, Provider Social History Tobacco Use Types Packs/Day Years Used Date Smoking Tobacco: Never Assessed Comments Unknown Sex and Gender Information Value Date Recorded Sex Assigned at Not on file Legal Sex Female 3:51 AM ASSISTANT MECHANIC Gender Identity Not on file Sexual Orientation [...] on filedocumented in this encounter Care Teams Environmental Health Aide Relationship Specialty Start Date End Date Hi Duarte MD [address] [place] [address] PCP - General 08/10/17 08/12/23 Beulah Johnson MD [address] [address] PCP - General Internal Medicine 08/13/23 documented as of this encounter
--- OUTSIDE RECORDS SUMMARY | 2025-07-12 11:29 | XMS_ITS | Clinical Summary ---
Author Organization [facility] Address [address] [place] [address] Care Team Providers Care Cabin Man Name Role Phone Beulah Johnson MD Primary [...] 11:01 AM CDT): F/u with her local Drywall Sprayer Essential hypertension 04/05/2024 Gastro-esophageal reflux disease without [...] on file Legal Sex Female 3:51 AM SKIVER COUNTER Gender Identity Not on file Sexual Orientation [...] Visit 65+ 2007 Covid-19 Vaccine (3 - 2024- season) 2025, 11/14/2020 Influenza Vaccine (#1) 2025 Insurance MEDICARE [facility] MEDICARE [facility] Care Teams Cabin Man Relationship Specialty Start Date End Date Beulah Johnson MD [address] [facility] [address] [place] [address] PCP - General Internal Medicine 08/13/23
--- OUTSIDE RECORDS SUMMARY | 2025-07-12 11:29 | XMS_ITS | Clinical Summary ---
Author Organization [facility] Desire Rodrigues Address [address] [place] [address] Care Team Providers Care Credentialing Coordinator Name Role Phone Stiven Johnson MD Primary [...] on file Legal Sex Female 4:04 PM DIRECTOR PATIENT Gender Identity Not on file Sexual Orientation Not on file Last Filed Vital Signs Vital Sign Reading Time Taken Comments Blood Pressure 136/56 09/09/2023 2:28 PM DIRECTOR PATIENT Pulse 77 09/09/2023 2:28 PM DIRECTOR PATIENT Temperature 36.3 C (97.3 F) 09/09/2023 2:28 PM DIRECTOR PATIENT Respiratory Rate 10 09/09/2023 2:28 PM DIRECTOR PATIENT Oxygen Saturation 99% 09/09/2023 2:28 PM DIRECTOR PATIENT Inhaled Oxygen Concentration - - Weight 63 kg (139 lb) 09/09/2023 2:28 PM DIRECTOR PATIENT Height 160 cm (5' 3) 02/02/2023 3:55 [...] Discontinued Insurance MEDICARE PART A AND B [facility] [id number] Member Subscriber Plan / Payer (Ef fective 2022-Present) Name:Qamar Meehan Relation to Subscriber:Self Name:Qamar Meehan Payer ID:[id number] (NAIC) Group ID:[id number] Type:Supplemental Address: [place] [id number] MEDICARE PART A AND B [facility] [id number] Care Teams Credentialing Coordinator Relationship Specialty Start Date End Date Stiven Johnson MD PCP - General Internal Medicine 02/02/23
[2025-07-12 12:15] LABS: Hematocrit 35.6 % (37.0-47.0); Hemoglobin 11.3 g/dL (12.0-15.0); Immature Granulocyte Percent A 0.3 % (0-0.5); Lymphocytes Absolute Auto 1.87 K/mm3 (0.9-3.2); Mean Corpuscular HGB Conc 31.7 g/dl (32-36); Mean Corpuscular Hemoglobin 29.6 pg (26-34); Mean Corpuscular Volume 93.2 fl (80-100); Nucleated Red Blood Cells Absolute Auto 0.000 K/mm3 (0.0-0.012); Nucleated Red Blood Cells Perc 0.0 % (0.0-0.2); Platelet Count Result 303 k/mm3 (150-375); Red Blood Count 3.82 M/mm3 (4.2-5.4); White Blood Count 7.1 K/mm3 (4.5-10.0)
[2025-07-12 12:28] LABS: Hemoglobin A1C 6.1 % (<5.7)
[2025-07-12 12:31] LABS: INR 0.9; Prothrombin Time 12.2 Seconds (11.1-14.7)
[2025-07-12 12:32] LABS: Partial Thromboplastin Time 30.6 Seconds (22.3-36.8)
[2025-07-12 12:36] LABS: Albumin Level 4.4 g/dL (3.5-5.1); Anion Gap 7 mmol/L (4-12); Blood Urea Nitrogen 21 mg/dL (7-17); Calcium 9.5 mg/dL (8.4-10.2); Carbon Dioxide 29 mmol/L (22-30); Chloride 103 mmol/L (98-107); Estimated Glomerular Filt Rate 54; Glucose 141 mg/dL (65-110); Potassium 3.2 mmol/L (3.4-5.0); Sodium 139 mmol/L (137-145)
== END 2025-07-12 10:47 | disposition home or self-care (01) ==
LOC: ANHSURGERY 10:50
PROVIDERS: Anesthesiology; PCP Internal Medicine; Visit Provider Orthopaedic Surgery
DX: M17.0 Bilateral primary osteoarthritis of knee (principal); N18.9 Chronic kidney disease, unspecified; Z01.818 Encounter for other preprocedural examination
CPT/HCPCS: 36415; 80048; 80307; 82040; 83036; 85025; 85610; 85730; 87081

== ENCOUNTER 2025-08-02 17:48 | Inpatient (IN) | payer MEDICARE, SELFPAY ==
[2025-07-12 11:02] VITALS: BP 123/53; PULSE 68; RESP 14; TEMP 36.7; O2SAT 100; BMI 24.7
--- NOTE | 2025-07-12 11:21 | PC.NURSE ---
[facility] has started construction of its new state of the art ER which will open Spring 2026. With this, we anticipate parking may be a challenge for some our surgical patients and families. Parking spaces are limited but are available for all Surgical, obstetrics, and ER patients sharing this lot. If you arrive and find you are having a hard time finding a parking space, please note that we understand the challenges, please drive around the hospital and park near Hospital Entrance 1. When you enter this entrance, you can ask a volunteer to direct or take you back to the surgical waiting area to check in. We appreciate everyone?s understanding of these expected challenges while we build for your future. Report to the Outpatient Waiting Room, entrance under the green pavilion located off [address], at time _09:30am on date __08/02/25 . Planned Procedure Time: _11:30am .? Time changes happen often and if your time is changed the preop area will call you the afternoon before. - You and your visitor will be asked to self-screen and do not enter if you have any COVID symptoms. Please call surgeon if you need to reschedule. - A mask is optional within the hospital at this time. Patients may have clear liquids (water, carbonated beverages, clear teas, apple juice) until 3 hours prior to surgery with a maximum of 20 ounces. - No food from midnight until time of surgery and no smoking, or chewing tobacco (or any form of nicotine). No chewing gum, candy or mints. (08:30am) Take only the following medications with a SIP of water on the morning of surgery: _Amlodipine, Levothyroxine, and Escitalopram, Tylenol if needed DO NOT STOP ANY OF YOUR OTHER PRESCRIPTION MEDICATIONS PRIOR TO SURGERY EXCEPT THE FOLLOWING Hold all vitamins and supplements for 3 days per anesthesiologist. Date of last dose is 07/29/25 Medications to discontinue per physician HOLD ASPIRIN, NSAIDS for [address] Martinez Date to take last dose___07/25/25. Please no make-up, nail belarusian, hairspray, perfume, deodorant, or body powder the day of surgery.? No jewelry (including any body piercings) or valuables the day of surgery, leave them at home.? Please take a shower or bath the night before, or the morning of, surgery with an antibacterial soap.?HIBICLEANSE SCRUB as directed. Wear comfortable, loose fitting clothing.? Overnight bag, good tennis shoes, walker - Jewelry must be removed prior to entering the operating room.? Rings and piercings that are not removed may be cut off. - The hospital will not accept responsibility for valuables.? - Please leave all valuables, including medications, at home the day of surgery. If you are going home after surgery, a licensed horse and wagon driver must drive you home.? - NO public transportation without another adult if you receive anesthesia. - We recommend that an adult stay with you for 24 hours following discharge. - We also recommend that you do not drive, make important decision, drink alcoholic beverages, or take any drugs that were not prescribed by your health care provider for at least 24 hours after your discharge time. Follow any additional instructions given to you from your surgeon. Telephone instructions given to ___Patient and asked if any additional questions and then verbalized understanding. Patient advised to call surgeon office or pre surgery nurse liaison [phone] if any additional questions.
--- NOTE | 2025-08-01 17:01 | PM.IMHP ---
H&P: HPI History of Present Illness Date/Time: 08/01/25 17:01 Chief Complaint: Osteoarthritis both knees with pain and instability due to valgus deformity on the right and pain on the left. Patient presents for right total knee arthroplasty anticipating use of constrained implants because of pronounced valgus deformity and cortisone shot in the left knee. Narrative: Patient is an 85-year-old female who returns for further evaluation of her right knee and to discuss proceeding with right knee replacement. She had a cortisone shot in the right knee 2 months ago in both knees. The right knee is worse. She did not get significant relief from the injection the right knee. The injection did help the left knee. She complains that her right knee is untrustworthy and naman. She would like to proceed with right total knee replacement. Previous x-rays from 03/28/2025 demonstrate advanced lateral compartment osteoarthritis in the. There is significant wear in the lateral to plateau with grooving and sclerotic changes. There is widening of medial joint space anatomic axis alignment 18? of valgus. She has advanced medial compartment osteoarthritis in the left knee. She takes 7.5 mg meloxicam daily release she did until last week. She saw Dr. Corrales her heavy duty diesel mechanic and was advised that she would have to stop nonsteroidal anti-inflammatory medications because of her chronic kidney disease. She states her last GFR was 51. I requested her recent laboratory studies dated 05/19/2025 which demonstrated a cbc with mild increase in an MCV 98, borderline low hemoglobin at 11.2 normal range 11.1 to 15.9. Creatinine was elevated at 1.08 normal being 1.0 or lower. GFR was 51. BUN was normal at 24. Her creatinine had gone up from 0.941 year prior. The urinalysis was normal except for 1+ glucose. Hemoglobin A1c was 6.4 which is stable for her. It was 6.5 and December of 2024. The 25 hydroxy vitamin-D level was 57.8. Uric acid 5.7 sed rate was 23 normal is 0-40 the PTH was 22 normal is 15-65. Patient was evaluated by and stress test was obtained which was normal. The the the he felt that she was cleared to proceed with surgery of her stress test was normal. She was notified by Dr. Mann's office that she is clear from a cardiac standpoint to proceed with right total knee replacement. She is going to receive a cortisone shot in the left knee at time of surgery. She has extremely severe lateral osteoarthritis right knee with 18 degree valgus deformity and mild widening of medial joint space. There is grooving in the lateral compartment. She similarly she has grooving in the medial compartment of the left knee with mild varus deformity. We are anticipating using constrained implants because of her pronounced valgus deformity. Her surgery has been scheduled for 08/02/2025 for right total knee replacement and cortisone injection left knee. Patient does have history of chronic kidney disease and her heavy duty diesel mechanic Dr. Corrales has advised her to stop nonsteroidal anti-inflammatory medications. She feels that her right knee is untrustworthy and she is afraid of falling and she feels that her right knee is limiting her significantly. She is very alert oriented and speaking to her she appears younger than her stated age. [facility] Past Medical History Medical History Cardiac murmur Prediabetes Hypertension Surgical History Surgical History History of lumpectomy of both breasts Family History Family History Mother Heart disease Father Heart disease Sibling No problems noted. Social History Social History Smoking status: Never smoker Second hand tobacco smoke exposure: Yes Alcohol intake: never Substance use: never Substance use type: does not use Do You Feel Safe in your Home?: Yes Lack of Transportation: YES Lack of Food: Never True Current Housing: I Have Housing Concerned About Future Housing: No Difficulty Paying Gas/Electric Bills: No Difficulty Paying for Meds: No Currently Unemployed: No Education: High School Diploma/GED Difficulty w/ Childcare or Family Care: No Living arrangements: with family Additional living arrangements comments: Occupation/Education: retired 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 Gender identity (if verbalized by the patient): Female Spiritual care concerns: No Meds Home Medications and Allergies Home Medications ?Medication ?Instructions ?Recorded ?Confirmed ?Type acetaminophen 500 mg tablet 1,000 mg PO BID 03/17/23 07/12/25 History (Tylenol Extra Strength) calcitriol 0.25 mcg capsule 0.25 mcg PO DAILY 03/17/23 07/12/25 History ferrous sulfate 325 mg (65 mg 325 mg PO DAILY 03/17/23 07/12/25 History iron) tablet (FeroSul) levothyroxine 50 mcg tablet 50 mcg PO DAILY 03/17/23 07/12/25 History lorazepam 1 mg tablet 0.5 mg PO HS 03/17/23 07/12/25 History rosuvastatin 40 mg tablet 40 mg PO DAILY 03/17/23 07/12/25 History amlodipine 10 mg tablet 10 mg PO DAILY 09/27/24 07/12/25 History ergocalciferol (vitamin D2) 50,000 50,000 unit PO MONTHLY 03/28/25 07/12/25 History unit tablet escitalopram oxalate 10 mg tablet 10 mg PO DAILY 05/30/25 07/12/25 History mecobalamin (vitamin B12) 1,000 1,000 mcg PO DAILY 05/30/25 07/12/25 History mcg chewable tablet losartan 100 mg tablet 100 mg PO DAILY 06/15/25 07/12/25 History furosemide 40 mg tablet 40 mg PO BID 07/05/25 07/12/25 History Allergies Allergy/AdvReac Type Severity Reaction Status Date / Time No Known Allergies Allergy Verified 07/12/25 10:57 Assessment and Plan Assessment and plan (1) Degenerative arthritis of knee, bilateral: Qualifiers: Osteoarthritis type: primary Qualified Code(s): M17.0 - Bilateral primary osteoarthritis of knee Code(s): M17.0 - Bilateral primary osteoarthritis of knee Status: Acute Assessment and Plan: The plan is to proceed with right total knee replacement most likely with constrained implants due to 18 degree anatomic axis valgus deformity and cortisone injection into the left knee. I explained to her that this is a painful operation especially during the 1st 2 or 3 weeks. Most patients are able to perform light her normal activities of daily living by 6 weeks but full healing takes between 12 and 18 months. I explained that she will have numbness lateral to the incision and that patients have difficulty kneeling after knee replacement surgery and some patients are unable and some patients will have chronic anterior knee soreness. I discussed that with her degree of valgus deformity there is a higher risk of stretch injury to the peroneal nerve which causes footdrop and numbness top of the foot anterolateral ankle if this occurs. I explained that we would use constrained implants rather than release the lateral collateral ligament and popliteus tendons to avoid over lengthening the lateral side of the knee. Risk of infection was reviewed. Her teeth are fine. I explained we would want her to use antibiotics before dental work future. Risk of DVT was explained and patient has no personal or family history of blood clot problems. Risk of ligament injury stiffness instability fracture component loosening and need for revision surgery was explained. Risk of bleeding and transfusion discussed. Risk of medical complications such as heart attack stroke pulmonary embolism and were reviewed. All of her questions were answered. Patient did have repeat labs with a BMP on July 12. Her GFR was a little better at 54 up from 51 since she is stop the meloxicam she has been taking chronically. Unfortunately will not be able to use nonsteroidal anti-inflammatory medication postoperatively. We will use the 1 injection of Toradol into the periarticular soft tissues. The BMP and July 12 also show that her potassium was low at 3.2. She does take Lasix chronically 40 mg twice daily which is likely the cause of her low potassium. We contacted Dr. Johnson's office to ask them to manage the low potassium before surgery. I tried calling patient the night before surgery and there are no answers on either phone listed and therefore I was unable to verify with her that she has been addressing the low potassium. We will obtain a stat potassium level when she comes into the hospital.
[2025-08-02] VITALS (11 sets, daily range): BP systolic 113–133; BP diastolic 48–58; PULSE 63–82; RESP 12–20; TEMP 36.3–37.1; O2SAT 94–100; BMI 24.5
--- NOTE | ~2025-08-02 | XR_ITS ---
EXAMINATION: XR chest 1V portable DATE: 08/02/2025 18:52 INDICATION: Shortness of breath TECHNIQUE: frontal view of the chest was obtained. COMPARISON: None FINDINGS: The lungs are clear with no focal airspace opacities, pulmonary edema, pleural effusion or pneumothorax. The cardiomediastinal silhouette is normal. Small foci of amorphous calcification along the lateral margin of the left greater tuberosity suspicious for left rotator cuff calcific tendinitis. Mild t horacolumbar dextrocurvature with moderate spondylosis. IMPRESSION: 1. No acute cardiopulmonary disease. Reviewed, dictated and finalized at location A.
--- NOTE | ~2025-08-02 | XR_ITS ---
EXAMINATION: [id number] DATE: 08/02/2025 16:20 INDICATION: Postoperative evaluation following right total knee arthroplasty. TECHNIQUE: Anteroposterior and lateral views of the right knee were obtained. COMPARISON: 03/28/2025 FINDINGS: Right total knee arthroplasty with patellar resurfacing appears well seated and in near anatomic alignment. No fractures identified. Expected postoperative subcutaneous and intra-articular gas. Again seen is a large corticated ossicle projecting posterior to the proximal tibia and fibula on the lateral projection, likely large osteochondral body within either a Vega's cyst or popliteal recess. IMPRESSION: 1. Right total knee arthroplasty, negative for postoperative purposes. Reviewed, dictated and finalized at location A.
[2025-08-02] MEDS: LACTATED RINGERS 1,000 ML 30 ML IV CONT (10:15)
[2025-08-02] MEDS: VANCOMYCIN HCL 1,000 MG in SODIUM CHLORIDE 0.9% IV 250 ML 250 MG IVPB (10:27)
[2025-08-02 10:28] LABS: Potassium 3.9 mmol/L (3.4-5.0)
[2025-08-02] MEDS: ACETAMINOPHEN 500 MG TABLET 1000 MG PO (10:28)
[2025-08-02] MEDS: TRANEXAMIC ACID 1,000MG/ISO100 1,000 MG/100 ML BAG 200 MG IVPB (10:55)
--- NOTE | 2025-08-02 11:16 | W.PM.PROC2 ---
Procedure Note - Detailed Date of Procedure 08/02/25 Pre-op Diagnosis oa right knee and left knee Post-op Diagnosis Same Procedure Performed Right total knee arthroplasty, cortisone shot left knee Surgeon Chi Daniels MD Mechanical Maintenance Instructor kim Anesthesia General Description of Procedure Patient was brought to the operating room and general anesthesia was administered. The left knee was prepped with ChloraPrep and 80 mg of Depo-Medrol and 4 cc 1% lidocaine were injected into the left knee without difficulty. The right knee was prepped draped usual fashion. Preop x-rays showed 19 degree anatomic axis valgus alignment and she had a 5 degree flexion contracture under anesthesia so we anticipated the need for constrained components. Limb was exsanguinated tourniquet elevated to 235 mmHg. A 7 in longitudinal midline incision was used and a standard parapatellar arthrotomy utilized. Infrapatellar and suprapatellar fat pad partially excised the quadriceps synovectomy carried out. A guide dano was inserted on femoral canal after aspiration of canal contents using the 4 degree valgus cutting bushing, 11 mm of bone removed the distal femur. This removed 10 mm on the medial side and about 2 mm on the lateral side. Next the tibia was cut. Our initial tibial cut was a little bit too superficial. It did not quite reach the posterior aspect medial tibial plateau the toe and did not quite get through the depth of the tibial defect therefore an additional 2 mm of bone was removed immediately. This was made perpendicular to the axis of the tibia in both planes. Meniscal remnants were excised and the PCL recessed. Flexion gap measured 10 mm medially and 14 mm laterally. There was severe wear distal and posterior aspect lateral femoral condyle. We applied the femoral sizing guide set at 5? of external rotation and after placing the medial posterior referencing pin, the footplate touching the posterior aspect of the lateral femoral condyle was rotated back 1 more mm and pinned in that position which matched Whitesides line exactly. The size 62.5 vanguard AP cutting block was applied AP and chamfer cuts were made. Trial was applied and rested on the anterior cortex and fit line to line medial to lateral. In extension with a 10 trial insert knee lacked about 15-20 degrees of extension booked open medially and tight laterally. The lateral capsule and iliotibial band were released transversely from the patellar tendon to the posterolateral corner and the posterolateral lateral corner capsule was released anterior to the lateral collateral ligament over to the popliteus tendon at the level of the resected surface. This left the lateral collateral ligament intact as was the popliteus tendon. On read trialing the knee still lacked about 15? of extension but was no force the medial side in the distracted position. Additional 2 mm of bone removed the distal femur at this time chamfer cuts revisited. The tibia was sized to a 67. This 71 was going to overhang 1 or 2 mm medial to lateral. Proper rotation was achieved and the tibia punched with the Zayaguard 67 size. We trialed with the 10 mm 5 and 1 insert and found appropriate AP stability at 90? based on the lateral side and we had a positive bounce but the knee was very close to full extension. However the medial side opened approximately 7 mm with valgus stress 8 with the knee in 10 ? of flexion. Therefore additional mm of bone was removed from the distal femur chamfer is revisited. The 360 degree Vanguard is femoral trial was into the distal femur and the guide applied to cut out the intercondylar box bone for the SSK causing and the Boss Reamer used for the 40 mm boss. We confirmed that we were at 5? distal femoral alignment relative to the axis of the femoral canal now with a box bone cut out and the intramedullary locked dano with 5 degree when used. At this time we trialed with the SSK tibial component with the SSK post 10 mm. Stability was appropriate 90? but we still had a positive bounce and with the arthrotomy towel clipped we could see that we were short by about 2 or 3? from full extension therefore 1 more mm bone was removed the distal femur chamfer is revisited. Posterior bone proximally condyles of the trial was removed previously and we had previously performed a posterior capsule release from the distal femur. Now on trialing with the 10 mm SSK tibial trial the knee came out to full extension with negative bounce.. Was appropriate anterior drawer stability in all positions with the arthrotomy towel clipped. We had put the tourniquet down earlier at 85 minutes and I assessed patellar tracking at this time. The patella was low enough that it impinged on the tibial post at 115?. Therefore it was necessary to resurface the patella. It measured 21 mm in thickness and was cut to 15 mm and holes placed for the 31 thin component which restored 21 mm thickness. Bone quality was excellent. I assessed patellar tracking which was not optimal until lateral retinacular release was performed. Lamar flexion was to between 125 and 130. Satisfied with this the limb was again re-exsanguinated tourniquet elevated to 275 mmHg. The bony surfaces were prepared with a step drill and thoroughly irrigated and dried. Bone quality was very adequate and above average for her age. Using 2 batches of methylmethacrylate 1 with gentamicin powder the cement was applied the 67 tibial component and the size 62.5 right SSK femoral component. Cement was applied the tibial plateau pressurized the canal tibial component fully seated cement applied to the distal femur the femoral component fully seated the knee brought into close to full extension with 11 mm 5 and 1 insert for cement pressurization. The knee lacked a couple of degrees of extension with this. Tourniquet was released total tourniquet time 105 minutes. Also we did put a 24 mm cement restrictor into the femoral canal prior to cementing. After cement hardening excess cement was sought for removed and hemostasis was achieved. She was given additional 2 g of Ancef and 1 g TXA. We trialed with the 10 SSK insert which gave full range of motion. The patella touched the post of the trial is 125? with central patellar tracking through range of motion. The real 10 SSk insert was placed without difficulty and locked with a locking clip. Range of motion stability and patellar tracking reconfirmed. Local anesthetic cocktail was injected in the periarticular soft tissues. Arthrotomy was closed with 2. Vicryl 1. Unidirectional barbed Stratafix suture. Skin closed with 2 subcutaneous Vicryl 3-0 subcuticular Monocryl and glue. EBL was 300 cc. There were no complications she was transferred to postop recovery room in good condition. After she was in the recovery room about 50 for 15 minutes she was awake enough to demonstrate 5/5 dorsiflexion strength of her toes and ankle. [facility] Surgery - Charge Forward: Surgery Hector (Cortisone injection left knee, right total knee replacement)
--- NOTE | 2025-08-02 11:16 | WPDHPUPDATE1 ---
History and Physical Update Update Date/Time: 08/02/25 11:16 History and Physical has been reviewed, including an updated exam of the patient. There are NO changes in the patient's condition. Risks, benefits, and alternatives have been discussed and questions answered. Patient agrees to proceed with procedure. K+ 3.9
--- NOTE | 2025-08-02 11:54 | WPDANESEPPF ---
Anes - Initial Pre Proc Eval Procedure: Operation Date: 08/02/25 11:30 Proposed Procedures p Right Total Knee Arthroplasty, Cortisone Injection Left Knee - Chi Daniels MD Date/Time: 08/02/25 11:54 Surgeon: Chi Daniels MD Pre Op Diagnosis: oa right knee Patient Data Age: 85 Gender: F Height: 1.6 m Weight: 62.8 kg Last Vital Signs Temp 36.3 C L 08/02/25 09:30 Pulse 63 08/02/25 09:30 Resp 16 08/02/25 09:30 BP 131/56 L 08/02/25 09:30 Pulse Ox 100 08/02/25 09:30 O2 Del Method Room Air 08/02/25 09:30 Allergies Allergy/AdvReac Type Severity Reaction Status Date / Time No Known Allergies Allergy Verified 08/02/25 10:37 Home Medications ?Medication ?Instructions ?Recorded ?Confirmed ?Type acetaminophen 500 mg tablet 1,000 mg PO BID 03/17/23 07/12/25 History (Tylenol Extra Strength) calcitriol 0.25 mcg capsule 0.25 mcg PO DAILY 03/17/23 08/02/25 History ferrous sulfate 325 mg (65 mg 325 mg PO DAILY 03/17/23 08/02/25 History iron) tablet (FeroSul) levothyroxine 50 mcg tablet 50 mcg PO DAILY 03/17/23 08/02/25 History lorazepam 1 mg tablet 0.5 mg PO HS 03/17/23 07/12/25 History rosuvastatin 40 mg tablet 40 mg PO DAILY 03/17/23 08/02/25 History amlodipine 10 mg tablet 10 mg PO DAILY 09/27/24 08/02/25 History ergocalciferol (vitamin D2) 50,000 50,000 unit PO MONTHLY 03/28/25 08/02/25 History unit tablet escitalopram oxalate 10 mg tablet 10 mg PO DAILY 05/30/25 08/02/25 History mecobalamin (vitamin B12) 1,000 1,000 mcg PO DAILY 05/30/25 08/02/25 History mcg chewable tablet losartan 100 mg tablet 100 mg PO DAILY 06/15/25 08/02/25 History furosemide 40 mg tablet 40 mg PO BID 07/05/25 08/02/25 History Laboratory Tests 08/02/25 10:14 Potassium 3.9 mmol/L (3.4-5.0) Blood Type O Positive Antibody Screen Negative Patient hx anesthesia problems: none Family hx anesthesia problems: none Results Review: All pre-operative results and documents have been reviewed as part of the pre-operative evaluation. [facility], [facility] Past Medical History Medical History Cardiac murmur Prediabetes Hypertension Surgical History Surgical History History of lumpectomy of both breasts Family History Family History Mother Heart disease Father Heart disease Sibling No problems noted. Social History Social History Smoking status: Never smoker Second hand tobacco smoke exposure: Yes Alcohol intake: never Substance use: never Substance use type: does not use Do You Feel Safe in your Home?: Yes Lack of Transportation: YES Lack of Food: Never True Current Housing: I Have Housing Concerned About Future Housing: No Difficulty Paying Gas/Electric Bills: No Difficulty Paying for Meds: No Currently Unemployed: No Education: High School Diploma/GED Difficulty w/ Childcare or Family Care: No Living arrangements: with family Additional living arrangements comments: Occupation/Education: retired 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 Gender identity (if verbalized by the patient): Female Spiritual care concerns: No Anes - Eval Final PreProcedure Day of Procedure 08/02/25 11:54 Patient weight: normal Heart: regular rate and rhythm Lungs: clear to auscultation Airway: Mallampati scale class II Neurological: alert and oriented Last oral intake: >/= 8 hours ASA classification: III Emergent: no Anesthetic plan: proceed Anesthesia type and monitoring: general ETT and standard monitoring Results Review: All pre-operative results and documents have been reviewed as part of the pre-operative evaluation. Informed Consent: The patient's anesthetic plan and its attendant risks and benefits were discussed with the patient/family/POA. Questions were solicited and answers provided to the satisfaction of the patient/family/POA.
[2025-08-02] MEDS: ceFAZolin 2 GM in SODIUM CHLORIDE 0.9% IV 50 ML 100 ML IVPB (12:16)
[2025-08-02] MEDS: methylPREDNISolone ACETATE 80 MG/ML VIAL IM (12:58)
[2025-08-02] MEDS: LIDOCAINE 1% LOCAL INJ 10 ML VIAL 4 ML INFILTRATE (13:01)
[2025-08-02] MEDS: SODIUM CHLORIDE 0.9% IV 38.7 ML, MORPHINE SULFATE INJ (*CRX) 2 MG, ROPivacaine HCL 1% 2... INFILTRATE (13:05)
[2025-08-02] MEDS: TRANEXAMIC ACID 1,000 MG/10 ML AMPUL 1000 MG IV PUSH (14:52)
[2025-08-02] MEDS: oxyCODONE HCL (*CRX) 2.5 MG TAB IR PO ×2 (18:18→21:40)
[2025-08-02] MEDS: SENNA/DOCUSATE SODIUM TABLET 2 TAB PO (18:18)
[2025-08-02] MEDS: ACETAMINOPHEN 325 MG TABLET 650 MG PO (18:18)
[2025-08-02] MEDS: SODIUM CHLORIDE 0.9% IV 1,000 ML 125 ML IV CONT (18:19)
[2025-08-02] MEDS: ceFAZolin 1 GM in SODIUM CHLORIDE 0.9% IV 50 ML 100 ML IVPB (20:49)
[2025-08-03] VITALS: BP 114/46; PULSE 68; RESP 16; TEMP 36.6; O2SAT 94
[2025-08-03] MEDS: ACETAMINOPHEN 325 MG TABLET 650 MG PO ×3 (00:25→12:21)
[2025-08-03] MEDS: oxyCODONE HCL (*CRX) 2.5 MG TAB IR PO ×4 (02:05→16:22)
[2025-08-03] MEDS: ceFAZolin 1 GM in SODIUM CHLORIDE 0.9% IV 50 ML 100 ML IVPB ×2 (03:52→14:41)
[2025-08-03 04:23] VITALS: BP 118/48; PULSE 77; RESP 16; TEMP 37.2; O2SAT 94
[2025-08-03] MEDS: LEVOTHYROXINE SODIUM 50 MCG TABLET PO (06:02)
[2025-08-03 07:39] LABS: Hematocrit 28.5 % (37.0-47.0); Hemoglobin 8.9 g/dL (12.0-15.0); Immature Granulocyte Percent A 0.6 % (0-0.5); Lymphocytes Absolute Auto 0.61 K/mm3 (0.9-3.2); Mean Corpuscular HGB Conc 31.2 g/dl (32-36); Mean Corpuscular Hemoglobin 29.6 pg (26-34); Mean Corpuscular Volume 94.7 fl (80-100); Nucleated Red Blood Cells Absolute Auto 0.000 K/mm3 (0.0-0.012); Nucleated Red Blood Cells Perc 0.0 % (0.0-0.2); Platelet Count Result 243 k/mm3 (150-375); Red Blood Count 3.01 M/mm3 (4.2-5.4); White Blood Count 12.0 K/mm3 (4.5-10.0)
[2025-08-03 08:03] LABS: Anion Gap 6 mmol/L (4-12); Blood Urea Nitrogen 21 mg/dL (7-17); Calcium 8.5 mg/dL (8.4-10.2); Carbon Dioxide 21 mmol/L (22-30); Chloride 106 mmol/L (98-107); Estimated CRCL calculation 33 ml/min; Estimated Glomerular Filt Rate 58; Glucose 141 mg/dL (65-110); Magnesium 2.1 mg/dL (1.6-2.3); Potassium 4.1 mmol/L (3.4-5.0); Sodium 133 mmol/L (137-145)
[2025-08-03] MEDS: ESCITALOPRAM OXALATE 10 MG TABLET PO (09:38)
[2025-08-03] MEDS: APIXABAN 2.5 MG TABLET PO (09:38)
[2025-08-03] MEDS: SENNA/DOCUSATE SODIUM TABLET 2 TAB PO (09:38)
[2025-08-03] MEDS: ROSUVASTATIN 20 MG TABLET 40 MG PO (09:38)
[2025-08-03] MEDS: FERROUS SULFATE 325 MG TABLET BY MOUTH (09:39)
[2025-08-03] MEDS: LOSARTAN POTASSIUM 100 MG TABLET PO (09:39)
[2025-08-03] MEDS: CYANOCOBALAMIN 1,000 MCG TABLET 1000 MCG PO (09:39)
[2025-08-03] MEDS: DOXYCYCLINE HYCLATE 100 MG TABLET PO (09:39)
[2025-08-03 10:17] LABS: Hemoglobin A1C 5.6 % (<5.7)
[2025-08-03 10:23] VITALS: BP 125/49; PULSE 78; RESP 18; TEMP 36.4; O2SAT 97
--- NOTE | 2025-08-03 10:59 | PM.PNORT ---
Progress Note: A&P Assessment and Plan (1) Status post right knee replacement: Code(s): Z96.651 - Presence of right artificial knee joint Status: Acute Assessment and Plan: Patient underwent right total knee arthroplasty in cortisone injection into the left knee yesterday afternoon. She is doing very well. She was up walking some to the bathroom last night in had little difficulty. She has no pain at rest she has a little discomfort with full weight-bearing. She feels that she would be safe to go home today. She did well with physical therapy this morning. Her blood pressure has been stable. Her hemoglobin as 8.9. It was 11.3 preoperatively therefore this is a typical drop following complex knee replacement. She had a severe valgus deformity and required constrained implants and extensive lateral retinacular release and I explained that she will likely develop some bruising laterally. Her GFR is 58 creatinine clearance 33. Three weeks ago her GFR was 57 and creatinine clearance 31. One month prior to that her GFR was down to 51 and that was new for her. For that reason her meloxicam that she has been taking chronically was discontinued. Her GFR went up a little bit following that. It remains mildly diminished. We are avoiding nonsteroidal anti-inflammatory medications postop. Physical examination On exam today she has no blood visible on the dressing. She does have some early ecchymosis noted lateral aspect of the knee. Mild swelling. She has intact sensation and motor function in the right foot. She is alert and oriented and surprisingly cheerful. Again, she looks younger than her stated age. I have discussed with her that since she we have straightened her right knee, that will be longer than the left knee which has a varus deformity due to bone loss in the medial compartment and therefore I have recommended that she use a 1/2 inch felt heel pad that I provided her today that she can put inside that she left shoe which should make her feel more level. If she elects to undergo left knee replacement in the future she would discard the heel lift at that time. In preparation for discharge today, I spoke with the hospitalist Dr. Moore. I raise the question of what we should do about her Lasix. She takes 40 mg of Lasix twice daily. We held it postoperatively thinking it would not be necessary for her blood pressure in light of the acute blood loss anemia expected after surgery superimposed on preoperative anemia. Dr. Moore is going to speak to her later this morning and may confer with Dr. Morataya to create a plan about what should be done regarding her Lasix postoperatively. We discussed that it is possible that her relatively high dose of Lasix may be contributing to her recent change in renal function and that is a consideration as well. Her potassium this morning is 4.1. If she is not going to be maintained on Lasix than she would not need the supplemental oral potassium that was started a few weeks ago when her potassium was noted to be 3.2 on preoperative labs. Our plan will be discharge today unless Dr. Moore feels there is contraindication Subjective Subjective Date/Time Seen: 08/03/25 10:59 Objective Data Vital Signs Vital Signs: Vital Signs - 24 hr 08/02/25 15:55 08/02/25 16:10 08/02/25 16:25 Temperature 37.1 C Pulse Rate 80 82 80 Respiratory Rate 14 12 14 Blood Pressure 133/49 L 132/58 L 125/51 L Pulse Oximetry 97 98 98 Oxygen Delivery Simple Face Mask Simple Face Mask Simple Face Mask Oxygen Flow Rate 6 6 6 08/02/25 16:40 08/02/25 16:55 08/02/25 17:02 Temperature 36.9 C Pulse Rate 78 78 Respiratory Rate 20 13 Blood Pressure 131/52 L 126/51 L Pulse Oximetry 99 94 Oxygen Delivery Room Air Nasal Cannula Oxygen Flow Rate 1 08/02/25 17:07 08/02/25 18:00 08/02/25 20:00 Temperature Pulse Rate 66 64 Respiratory Rate 12 18 Blood Pressure 118/58 L 126/50 L Pulse Oximetry 98 97 95 Oxygen Delivery Nasal Cannula Nasal Cannula Oxygen Flow Rate 1 1 08/02/25 20:51 08/03/25 00:00 08/03/25 04:23 Temperature 36.3 C L 36.6 C 37.2 C Pulse Rate 68 68 77 Respiratory Rate 18 16 16 Blood Pressure 113/48 L 114/46 L 118/48 L Pulse Oximetry 98 94 94 Oxygen Delivery Oxygen Flow Rate 08/03/25 09:37 08/03/25 10:23 Temperature 36.4 C Pulse Rate 78 Respiratory Rate 18 Blood Pressure 125/49 L Pulse Oximetry 97 Oxygen Delivery Room Air Oxygen Flow Rate Intake/Output Intake/Output: Intake & Output 07/31/25 08/01/25 08/02/25 08/03/25 23:59 23:59 23:59 23:59 Intake Total 600 240 Balance 600 240 Meds/Results Medications: Active Medications Generic Name Dose Route Start Last Admin Trade Name Inna TSE Reason Stop Dose Admin Acetaminophen 650 mg 08/02/25 18:00 08/03/25 06:02 Acetaminophen 325 Mg Tablet PO 650 mg Q6H CHANCE Administration Amlodipine Besylate 10 mg 08/03/25 09:00 08/03/25 09:38 Amlodipine Besylate 10 Mg Tablet PO 10 mg DAILY CHANCE Administration Apixaban 2.5 mg 08/03/25 09:00 08/03/25 09:38 Apixaban 2.5 Mg Tablet PO 2.5 mg Q12HR CHANCE Administration Calcitriol 0.25 mcg 08/03/25 09:00 08/03/25 09:38 Calcitriol 0.25 Mcg Capsule PO 0.25 mcg DAILY CHANCE Administration Cyanocobalamin 1,000 mcg 08/03/25 09:00 08/03/25 09:39 Cyanocobalamin 1,000 Mcg Tablet PO 1,000 mcg DAILY CHANCE Administration Doxycycline Hyclate 100 mg 08/03/25 09:00 08/03/25 09:39 Doxycycline Hyclate 100 Mg Tablet PO 08/15/25 08:59 100 mg Q12HR CHANCE Administration Ergocalciferol 1,250 mcg 08/07/25 09:00 Ergocalciferol (Vitamin D2) 1,250 Mcg (50,000 Units) Capsule PO 09/06/25 08:59 Tu@0900 [facility] Escitalopram Oxalate 10 mg 08/03/25 09:00 08/03/25 09:38 Escitalopram Oxalate 10 Mg Tablet PO 10 mg DAILY CHANCE Administration Ferrous Sulfate 325 mg 08/03/25 09:00 08/03/25 09:39 Ferrous Sulfate 325 Mg Tablet BY MOUTH 325 mg DAILY CHANCE Administration Cefazolin Sodium 1 gm/ Sodium 50 mls @ 100 mls/hr 08/02/25 20:00 08/03/25 03:52 Chloride IVPB 08/03/25 12:29 100 mls/hr Q8H CHANCE Administration Levothyroxine Sodium 50 mcg 08/03/25 06:30 08/03/25 06:02 Levothyroxine Sodium 50 Mcg Tablet PO 50 mcg DAILY@0630 CHANCE Administration Losartan Potassium 100 mg 08/03/25 09:00 08/03/25 09:39 Losartan Potassium 100 Mg Tablet PO 100 mg DAILY CHANCE Administration Miscellaneous Information 1 each 08/03/25 00:01 Clarify Ergocalciferol--Order Unclear, Does Pt Take It Monthly Or Weekly? XX 09/02/25 00:00 CLARIFY CHANCE Morphine Sulfate 2 mg 08/02/25 17:14 Morphine Sulfate (*Crx) 2 Mg/Ml Inj IV PUSH Q1H PRN Pain Rated 7-10 Naloxone HCl 0.1 mg 08/02/25 17:14 Naloxone Hcl 0.4 Mg/Ml Vial IV PUSH Q2M PRN Opiate Reversal Oxycodone HCl 2.5 mg 08/02/25 18:00 08/03/25 09:38 Oxycodone Hcl (*Crx) 2.5 Mg Tab Ir PO 2.5 mg Q4H CHANCE Administration Oxycodone HCl 2.5 mg 08/02/25 17:14 Oxycodone Hcl (*Crx) 2.5 Mg Tab Ir PO Q4H PRN Pain Rated 4-6 Polyethylene Glycol 17 gm 08/03/25 09:00 08/03/25 09:38 Polyethylene Glycol 3350 17 Gm Powd.Pack PO 17 gm QAM CHANCE Administration Rosuvastatin Calcium 40 mg 08/03/25 09:00 08/03/25 09:38 Rosuvastatin 20 Mg Tablet PO 40 mg DAILY CHANCE Administration Senna/Docusate Sodium 2 tab 08/02/25 17:14 08/03/25 09:38 Senna/Docusate Sodium Tablet PO 2 tab BID CHANCE Administration Radiology Results: ITS Impressions Knee X-Ray 08/02/25 16:31 IMPRESSION: 1. Right total knee arthroplasty, negative for postoperative purposes. Chest X-Ray 08/02/25 19:47 IMPRESSION: 1. No acute cardiopulmonary disease. Labs Labs: Laboratory Results - last 24 hr 08/02/25 08/03/25 10:14 06:25 WBC 12.0 H RBC 3.01 L Hgb 8.9 L Hct 28.5 L MCV 94.7 MCH 29.6 MCHC 31.2 L RDW 13.2 Plt Count 243 MPV 9.1 Immature Gran % (Auto) 0.6 H Neut % (Auto) 91.4 H Lymph % (Auto) 5.1 L [place] % (Auto) 2.8 Eos % (Auto) 0.0 Baso % (Auto) 0.1 L Lymph # (Auto) 0.61 L [place] # (Auto) 0.3 Eos # (Auto) 0.0 Baso # (Auto) 0.0 Abs Immat Gran (auto) 0.07 H Absolute Neuts (auto) 10.9 H Absolute Nucleated RBC 0.000 Nucleated RBC % 0.0 Sodium 133 L Potassium 4.1 Chloride 106 Carbon Dioxide 21 L Anion Gap 6 BUN 21 H Creatinine 0.93 Estim Creat Clear Calc 33 Estimated GFR 58 L Glucose 141 H Hemoglobin A1c 5.6 Calcium 8.5 Magnesium 2.1 Antibody Screen Negative
[2025-08-03 11:30] VITALS: O2SAT 97
[2025-08-03] MEDS: VANCOMYCIN HCL 1,000 MG in SODIUM CHLORIDE 0.9% IV 250 ML 250 MG IVPB (12:00)
--- NOTE | 2025-08-03 12:53 | PM.IMCN ---
Assessment and Plan Assessment and plan (1) Hypertension: Code(s): I10 - Essential (primary) hypertension Status: Acute (2) Status post right knee replacement: Code(s): Z96.651 - Presence of right artificial knee joint Status: Acute Plan After discussion with patient we have come to an agreement to discontinue her amlodipine 10 which can exacerbate bilateral lower extremity swelling and to place her Lasix on hold this time. It is recommended patient to use compression stockings or Jose Luis wraps when ambulating and to elevate lower extremities when at rest. Patient with no significant lower extremity edema at this time and due to patient's history of CKD recommended we hold Lasix until follow-up with guide plant a use as needed acute lower extremity swelling returns. As a recommended patient continue to monitor blood pressure since we are discontinuing do of her blood pressure medications she is aware if this continues to elevate from her controlled levels she will likely need follow-up with primary care physican or guide plant and would recommend another antihypertensive medication other than amlodipine 10. HPI Date of Consult Consult date: 08/03/25 Requesting Physician: Chi Daniels MD Primary Care Provider: Stiven JohnsonMD Consult Narrative Reason for consult: Medical Managment and Medication adjustments Narrative: Qamar Meehan is a 85 year old female with a past medical history, hypertension CKD hypothyroidism, oa, and HLD. Patient was an admission postop right total knee replacement by Dr. Daniels. Was requested for consult to evaluate patient for medical management and medication adjustments. Spoke with Dr. Daniels regarding patient's Lasix and and amlodipine with some concern of discharge and continue these medications. Evaluated and assessed patient postop with no current complaints reports she is doing well and tolerating physical and occupational therapy. Patient at this time denied any chest pain, shortness a breath, nausea vomiting. Upon evaluation of patient's lower extremity edema is noted to why she is taking the Lasix there was no evidence any current edema. After speaking with patient she was recently started on oral Lasix 40 mg b.i.d. for intermittent bilateral lower extremity edema which she reports is worse at night and after ambulation at which time her guide plant's had prescribed her Lasix. Review of Systems Review of Systems: All systems reviewed & are unremarkable except as noted in HPI and below PMFSH Past Medical History Medical History Cardiac murmur Prediabetes Hypertension Surgical History Surgical History History of lumpectomy of both breasts Family History Family History Mother Heart disease Father Heart disease Sibling No problems noted. Social History Social History Smoking status: Never smoker Second hand tobacco smoke exposure: Yes Alcohol intake: never Substance use: never Substance use type: does not use Do You Feel Safe in your Home?: Yes Lack of Transportation: No Lack of Food: Never True Current Housing: I Have Housing Concerned About Future Housing: No Difficulty Paying Gas/Electric Bills: No Difficulty Paying for Meds: No Currently Unemployed: No Education: High School Diploma/GED Difficulty w/ Childcare or Family Care: No Living arrangements: with family Additional living arrangements comments: Occupation/Education: retired Additional occupation/education comments: [employer]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 Gender identity (if verbalized by the patient): Female Spiritual care concerns: No Meds Home Medications and Allergies Home Medications ?Medication ?Instructions ?Recorded ?Confirmed ?Type acetaminophen 500 mg tablet 1,000 mg PO BID 03/17/23 07/12/25 History (Tylenol Extra Strength) calcitriol 0.25 mcg capsule 0.25 mcg PO DAILY 03/17/23 08/02/25 History ferrous sulfate 325 mg (65 mg 325 mg PO DAILY 03/17/23 08/02/25 History iron) tablet (FeroSul) levothyroxine 50 mcg tablet 50 mcg PO DAILY 03/17/23 08/02/25 History lorazepam 1 mg tablet 0.5 mg PO HS 03/17/23 07/12/25 History rosuvastatin 40 mg tablet 40 mg PO DAILY 03/17/23 08/02/25 History amlodipine 10 mg tablet 10 mg PO DAILY 09/27/24 08/02/25 History ergocalciferol (vitamin D2) 50,000 50,000 unit PO MONTHLY 03/28/25 08/02/25 History unit tablet escitalopram oxalate 10 mg tablet 10 mg PO DAILY 05/30/25 08/02/25 History mecobalamin (vitamin B12) 1,000 1,000 mcg PO DAILY 05/30/25 08/02/25 History mcg chewable tablet losartan 100 mg tablet 100 mg PO DAILY 06/15/25 08/02/25 History furosemide 40 mg tablet 40 mg PO BID 07/05/25 08/02/25 History oxycodone 5 mg tablet 2.5 mg (1/2 x 5 mg) PO Q4H PRN 08/03/25 Rx Pain Rated 4-6 #20 tabs Allergies Allergy/AdvReac Type Severity Reaction Status Date / Time No Known Allergies Allergy Verified 08/02/25 10:37 Vital Signs Vital Signs - 24 hr 08/02/25 15:55 08/02/25 16:10 08/02/25 16:25 Temperature 98.7 F Pulse Rate 80 82 80 Respiratory Rate 14 12 14 Blood Pressure 133/49 L 132/58 L 125/51 L Pulse Oximetry 97 98 98 Oxygen Delivery Simple Face Mask Simple Face Mask Simple Face Mask Oxygen Flow Rate 6 6 6 08/02/25 16:40 08/02/25 16:55 08/02/25 17:02 Temperature 98.5 F Pulse Rate 78 78 Respiratory Rate 20 13 Blood Pressure 131/52 L 126/51 L Pulse Oximetry 99 94 Oxygen Delivery Room Air Nasal Cannula Oxygen Flow Rate 1 08/02/25 17:07 08/02/25 18:00 08/02/25 20:00 Temperature Pulse Rate 66 64 Respiratory Rate 12 18 Blood Pressure 118/58 L 126/50 L Pulse Oximetry 98 97 95 Oxygen Delivery Nasal Cannula Nasal Cannula Oxygen Flow Rate 1 1 08/02/25 20:51 08/03/25 00:00 08/03/25 04:23 Temperature 97.3 F L 98 F 99 F Pulse Rate 68 68 77 Respiratory Rate 18 16 16 Blood Pressure 113/48 L 114/46 L 118/48 L Pulse Oximetry 98 94 94 Oxygen Delivery Oxygen Flow Rate 08/03/25 09:37 08/03/25 10:23 08/03/25 11:30 Temperature 97.6 F Pulse Rate 78 Respiratory Rate 18 Blood Pressure 125/49 L Pulse Oximetry 97 97 Oxygen Delivery Room Air Room Air Oxygen Flow Rate Exam Const: General: comfortable and no acute distress HENMT: Mouth: Yes moist mucous membranes Eyes: General: appearance normal, both eyes and all related structures Sclera: sclerae normal Pupils: Equal, round and reactive pupils present Neck: Neck: supple and no JVD Resp: Effort & Inspection: normal respiratory effort Auscultation: clear to auscultation bilaterally Cardio: Rate: regular rate Rhythm: regular rhythm GI: GI Palp: Yes Soft to palpation Auscultation: normal bowel sounds Skin: General skin exam: normal color and no rashes or lesions noted Wounds: no wounds Neuro: Speech: normal speech Extrem: General: normal to inspection Other: No edema noted Psych: Mental Status: mental status grossly normal Affect: normal affect Results Labs 08/03/25 06:25 08/03/25 06:25 Labs: Short CBC 08/03/25 Range/Units 06:25 WBC 12.0 H (4.5-10.0) K/mm3 Hgb 8.9 L (12.0-15.0) g/dL Hct 28.5 L (37.0-47.0) % Plt Count 243 (150-375) k/mm3 BMP 08/03/25 06:25 Sodium 133 L Potassium 4.1 Chloride 106 Carbon Dioxide 21 L BUN 21 H Creatinine 0.93 Glucose 141 H Calcium 8.5 Quality VTE Prophylaxis VTE prophylaxis: pharmacologic ordered -Patient's previous records reviewed on admission -ER notes reviewed in detail on admission -discussed all findings and current treatment plan with patient/Family/POA -Consultations reviewed for recommendations -Patient's disposition for safe discharge discussed with pillowcase sewer -radiology imaging, EKG and test results I have personally reviewed and interpreted unless otherwise specified Dictation performed by [employer] direct speech recognition software, therefore property insurance claims examiner variants and typographical errors may occur. Hospitalist MIPS Advance Care Plan I have confirmed that the patient's Advanced Care Plan is present, code status is documented, or surrogate decision maker is listed in patient medical record.: Yes Medication Reconciliation I have utilized all available resources to obtain, update and review the patients current medications (includes all prescriptions, OTC, herbals, cannabis, and nutritional supplements).: Yes The patient is not eligible for med reconciliation; the patient is in a emergent medical situation where delaying treatment would jeopardize the patients health.: No
--- NOTE | 2025-08-03 14:34 | P.PNAN_ITS ---
Anes - Prog Note Post-Op Date/Time: 08/03/25 14:34 Cardiovascular status: normal Respiratory status: normal Airway patency: baseline Mental status: baseline Vital Signs: Last Vital Signs Temp 36.4 C 08/03/25 10:23 Pulse 78 08/03/25 10:23 Resp 18 08/03/25 10:23 BP 125/49 L 08/03/25 10:23 Pulse Ox 97 08/03/25 11:30 O2 Del Method Room Air 08/03/25 11:30 O2 Flow Rate 1 08/02/25 20:00 Pain Score (VAS): 2 I/O: Intake & Output 08/02/25 08/03/25 08/03/25 23:59 07:59 15:59 Intake Total 200 240 Balance 200 240 Laboratory Tests 08/03/25 06:25 08/03/25 06:25 08/03/25 06:25 WBC 12.0 H RBC 3.01 L Hgb 8.9 L Hct 28.5 L MCV 94.7 MCH 29.6 MCHC 31.2 L RDW 13.2 Plt Count 243 MPV 9.1 Immature Gran % (Auto) 0.6 H Neut % (Auto) 91.4 H Lymph % (Auto) 5.1 L [place] % (Auto) 2.8 Eos % (Auto) 0.0 Baso % (Auto) 0.1 L Lymph # (Auto) 0.61 L [place] # (Auto) 0.3 Eos # (Auto) 0.0 Baso # (Auto) 0.0 Abs Immat Gran (auto) 0.07 H Absolute Neuts (auto) 10.9 H Absolute Nucleated RBC 0.000 Nucleated RBC % 0.0 Sodium 133 L Potassium 4.1 Chloride 106 Carbon Dioxide 21 L Anion Gap 6 BUN 21 H Creatinine 0.93 Estim Creat Clear Calc 33 Estimated GFR 58 L Glucose 141 H Hemoglobin A1c 5.6 Calcium 8.5 Magnesium 2.1 Patient Feedback: Patient satisfied with anesthetic care.
[2025-08-03 15:09] VITALS: BP 126/56; PULSE 83; RESP 18; TEMP 36.4; O2SAT 91
--- NOTE | 2025-08-08 15:47 | P.DS_ITS ---
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 Her pain control was excellent. She had acute blood loss anemia with hemoglobin of 8.9 the morning after surgery. She had anemia preop with hemoglobin 11.3. She was asymptomatic from standpoint of anemia and did very well walk in the room the night of surgery and the morning after surgery. She has remained neurologically intact in the right foot. The hospitalist service address the question of whether she should be on the 40 mg Lasix twice daily. I was concerned of that if that was restarted her blood pressure might be low. The who has decided to hold the amlodipine as that might be a cause of her lower extremity edema the which was the reason she has been taking the Lasix the and continue to hold the Lasix and since her potassium was normal hold the oral potassium she has been taking over the last 2 weeks to treat her hypokalemia. She was to monitor blood pressure at home and follow-up with her primary care physician Dr. Scales Time Spent with Patient Time attestation: Total time spent providing and/or coordinating discharge services: Discharge Plan Discharge Attending physician on discharge: Chi Perez Consulting providers: Joanne Moore; Cody Esteves; Suzanne Hurtado; Chi Silva Discharging Clinician: Chi Perez Anticipated Discharge Date/Time: 08/03/25 12:52 Patient Disposition: Home Activity: follow weight bearing status and other - see discharge instructions Diet: heart healthy Wound Care Instructions: other - see discharge instructions Discharge Instructions: CHI PEREZ M.D [facility] [address] [place] [address] [address] [place] [address] POST-OPERATIVE DISCHARGE INSTRUCTIONS TOTAL KNEE ARTHROPLASTY 1. When resting, do not rest in the chair.When resting, lie on your back, with back flat on the couch or bed, with leg elevated above heart to minimize swelling. You may put a pillow under your head. . Significant swelling could indicate a blood clot and if this occurs call the office (or go to the ER) to have a venous ultrasound. Therefore, do not rest in a chair. 2. At least five times a day spend several minutes stretching your knee into flexion while sitting in the chair and also stretching your knee out straight The abilities to bend your knee fully and straighten your knee fully are two most important knee functions to focus on during your recovery. 3. It is ok to sit in chair to eat, use the toilet and receive a guest and to do your stretching exercises, but, sitting in a chair will cause your leg to swell. Therefore, avoid additional time sitting in the chair. and don't rest in the chair. 4. Wound Care: Nursing will give you an additional Mepilex dressing at the time of discharge. Patient to remove the dressing and apply a new Mepilex dressing at home 7 days after surgery and leave the dressing on until seen in office. It is normal to see a small amount of blood on the silver pad of the Mepilex dressing. Its designed to hold small spots of blood. However, if the blood reaches the edge of the pad up to the boarder of the clear membrane that surrounds the pad, the pad is saturated and the Mepilex dressing should be removed and a new Mepilex dressing should be applied. 5. May shower with a Mepilex dressing in place.The water will run off the dressing. 6. Unless you are told otherwise, you may put full weight on your operated leg. Use a walker for balance and practice walking as normally as you can, ideally for a few minutes every hour while you are awake. 7. I would advise against putting ice packs on your knee incision. Ice constricts blood flow which can impar healing of the knee incision. 8. Use incentive spirometer every hour while awake during the first week to fully expand your lungs. 9. You must not take the lorazepam at night unless you have stopped taking any oxycodone during the day. The combination of these 2 medications can cause respiratory depression which means diminished Dr. Efra elizabeth which leads to overdose and and for this reason the should never be taken together in the same [address] Moore, the hospitalist, saw you today. Please follow her recommendations with respect to your furosemide (Lasix). 11. You had anemia before surgery and there is blood loss during knee replacement surgery and following knee replacement which causes the swelling and bruising you see after knee. If you feel you are getting excessively lightheaded or woozy when you stand up, that could be a symptom of severe anemia and if that occurs then you should call us or if it is after office hours go to the emergency room to have your hematocrit and hemoglobin checked with the blood test. 12. Do not take the meloxicam or medications like ibuprofen or Aleve as these could make you bleed more. 13. I have prescribed doxycycline which is an antibiotic that he will take for 12 days. This is to reduce her risk of infection which is elevated given your history of renal insufficiency. IMPORTANT: Remember not to sit in the chair for more than 30 minutes at a time. As a rule, during the first 14 days after surgery, only sit in the chair to work on the chair knee bending stretch exercise, for meals or for use of the restroom. Sitting in the chair promotes significant swelling in the knee and leg which will make your knee stiff and more painful and which simulates having a blood clot in the veins of the leg. If this type of significant diffuse swelling occurs, an ultrasound at the hospital will be necessary to rule out a blood clot. Be up walking around with the walker for a few minutes every hour while awake and then rest laying on your back on the couch or in bed with your leg elevated on cushions or pillows. Do not rest in the chair. 1). Bilateral leg swelling/HTN * As discussed I have discontinued your Amlodipine which can exacerbate leg swelling and placed your Lasix on hold with an as needed indication until follow-up with your gauge maker apprentice * I recommend compression stockings or stefania wraps to lower extremities with ambulation * When at rest ensure to elevate and avoid long periods of dangling the lower extremities. * Do to your medication changes please monitor your blood pressure and if it continues to elevate from the current controlled values please discuss adding another blood pressure medication if indicated with your primary care physician or [facility] Slas[facility] other than Amlodipine. * If taking a potassium supplement please discontinue when not taking the Lasix Patient Instructions: Antibiotic Form, Apixaban (By mouth) Patient Language: Luxembourger Stand Alone Forms: General Discharge Information Follow-up/Referrals: Chi Perez MD [Physician, Orthopedics] - Keep Reg. Scheduled Appt. Discharge Medications: New oxycodone 5 mg tablet 2.5 mg PO Q4H PRN (Reason: Pain Rated 4-6) Qty: 20 0RF acetaminophen 325 mg Tablet 650 mg PO Q6H Qty: 100 0RF polyethylene glycol 3350 [Miralax] 17 gram Powder In Packet 17 g PO QAM Qty: 30 0RF sennosides-docusate sodium [Senokot-S] 8.6-50 mg Tablet 2 tab PO BID Qty: 120 0RF doxycycline hyclate 100 mg Tablet 100 mg PO Q12HR Qty: 24 0RF Eliquis 2.5 mg Tablet 2.5 mg PO Q12HR Qty: 28 0RF Continued levothyroxine 50 mcg Tablet 50 mcg PO DAILY ferrous sulfate [FeroSul] 325 mg (65 mg iron) Tablet 325 mg PO DAILY calcitriol 0.25 mcg Capsule 0.25 mcg PO DAILY rosuvastatin 40 mg Tablet 40 mg PO DAILY ergocalciferol (vitamin D2) 50,000 unit tablet 50,000 unit PO MONTHLY Rx Instructions: Take every Wednesday AM escitalopram oxalate 10 mg tablet 10 mg PO DAILY mecobalamin (vitamin B12) 1,000 mcg tablet,chewable 1,000 mcg PO DAILY losartan 100 mg tablet 100 mg PO DAILY Held acetaminophen [Tylenol Extra Strength] 500 mg Tablet 1,000 mg PO BID Hold Instructions: Resume on 08/24/25. Until follow-up with Dr. Perez furosemide 40 mg tablet 40 mg PO BID Hold Instructions: Resume on 08/25/25. Continue to hold until follow-up with Welt Slasher, May use as needed if lower extremity swelling returns or worsens Discontinued lorazepam 1 mg Tablet 0.5 mg PO HS amlodipine 10 mg tablet 10 mg PO DAILY Date of admission: 08/02/25 17:48 Primary Care Provider: Alex,Stiven Admitting Provider: Chi Perez Attending physician on admission: Chi Perez Condition: Stable
== END 2025-08-03 16:35 | disposition home or self-care (01) | DRG 470 ==
LOC: ANH3MEDSUR 17:51
PROVIDERS: Nurse Practitioner Family; Admitting Provider Orthopaedic Surgery; PCP Internal Medicine; Visit Provider Orthopaedic Surgery
PROC: 0SRC0J9 Replacement of Right Knee Joint with Synthetic Substitute, Cemented, Open Approach (ICD-10-PCS; CPT 27447; principal; 2025-08-02 11:30)
DX: M17.11 Unilateral primary osteoarthritis, right knee (principal); M21.061 Valgus deformity, not elsewhere classified, right knee; I12.9 Hypertensive chronic kidney disease with stage 1 through stage 4 chronic kidney disease, or unspecified chronic kidney disease; N18.9 Chronic kidney disease, unspecified; E03.9 Hypothyroidism, unspecified; M19.90 Unspecified osteoarthritis, unspecified site; E78.5 Hyperlipidemia, unspecified; D64.9 Anemia, unspecified; R73.03 Prediabetes
CPT/HCPCS: 36415; 71045; 73560; 80048; 83036; 83735; 84132; 85025; 86850; 86900; 86901; 97161; 97165; 97530; 97535; J0690; A9270; C1713; C1776; J0166; J1010; J1100; J2003; J2270; J2371; J2405; J2704; J2795; J3010; J3290; J3373; J7030; J7050; J7120

== ENCOUNTER 2025-09-06 15:45 | Outpatient (RCR) | payer MEDICARE, SELFPAY ==
--- NOTE | 2025-08-06 16:11 | OPREHPOC ---
Outpatient Therapy Plan of Care This is a Multidisciplinary Plan of Care that may contain components documented by all disciplines (PT, OT, and ST.) PT Problem 1 PT Problem #1 Knowledge Deficit PT Goal 1 Goal / Goal Update [place] with HEP Target Visit 4 PT Goal 2 Goal / Goal Update Report no knee pain greater than 2/10 Target Visit 8 PT Problem 2 PT Problem #2 Impaired Range of Motion PT Goal 1 Goal / Goal Update 1. Maintain terminal knee extension 2. Achieve knee flexion ROM of 120 degrees+ for improve functional mobility for ADL performance Target Visit 10 PT Problem 3 PT Problem #3 Impaired Gait PT Goal 1 Goal / Goal Update 1. Ambulate independent of AD 2. Ambulate with even stride length bilaterally
--- NOTE | 2025-08-06 16:11 | PTOPEVAL1 ---
Assessment and note entered by Nicolás Weaver, PT Evaluation Information Assessment Status Evaluation Diagnosis S/P R TKA ICD-10 Condition Codes (PT) Pain in right knee M25.561 Onset 08/02/25 Subjective Information Reports that she was independent prior to surgery. No concerns at this time. She has pain but it is different than pre op and manageable. Reports that she is sleeping just fine. Currently feels very dependent on the walker. She had a cortisone injection in the left knee at time of surgery. She would like to avoid surgery on the left knee if possible. Reported Pain Level Pain Score 7: Self Report Assessment PT Clinical Summary Patient presents with typical signs and symptoms of post operative total knee arthroplasty. Edema present and patient lacking terminal stance in gait but not showing significant loss in knee extension. We reiterated the importance of frequent, low intensity stretching as part of HEP. Will benefit form skilled therapy to address ROM and strength deficits at this time. Plan of Care Interventions Gait Training,Manual Therapy,Neuro Re-education, Therapeutic Activities,Therapeutic Exercise PT Services Indicated Yes Treatment Frequency and 2x/week for 10 visits Duration These treatments will address the objective and functional deficits as defined above. The patient will be advanced safely and appropriately in order for the patient to progress towards his/her prior level of function. Additional exercises will be introduced and as well as a comprehensive home exercise program upon discharge, if needed, ?to ensure carryover of functional gains achieved in the clinic. This treatment plan has been reviewed and agreement upon by the patient.
--- NOTE | 2025-09-06 17:01 | OPREHPOC ---
Outpatient Therapy Plan of Care This is a Multidisciplinary Plan of Care that may contain components documented by all disciplines (PT, OT, and ST.) PT Problem 1 PT Problem #1 Knowledge Deficit PT Goal 1 Goal / Goal Update [place] with HEP Target Visit 4 Progress Met PT Goal 2 Goal / Goal Update Report no knee pain greater than 2/10 Target Visit 8 Progress Met PT Problem 2 PT Problem #2 Impaired Range of Motion PT Goal 1 Goal / Goal Update 1. Maintain terminal knee extension 2. Achieve knee flexion ROM of 120 degrees+ for improve functional mobility for ADL performance Target Visit 10 Progress Met PT Problem 3 PT Problem #3 Impaired Gait PT Goal 1 Goal / Goal Update 1. Ambulate independent of AD 2. Ambulate with even stride length bilaterally Progress Met
--- NOTE | 2025-09-06 17:01 | PTOPDC ---
Assessment and note entered by Nicolás Weaver, PT Evaluation Information Assessment Status Progress Diagnosis S/P R TKA ICD-10 Condition Codes (PT) Pain in right knee M25.561 Onset 08/02/25 Subjective Information Reports that overall she feels she is doing better . She is still not quite walking the way that she wants to but is doing much better than she was pre -op. Feels she is good to go and will continue using the cane for a while. Reported Pain Level Pain Score 1: Self Report Assessment PT Clinical Summary Patient has met all goals for therapy at this time and is suitable for discharge to [facility] at this time . She has continued to use the cane for pelvic stability and is seeing some progress with evenness of hips. Plan of Care PT Services Indicated Yes
== END 2025-09-11 10:43 | disposition home or self-care (01) ==
LOC: ANHPT 15:45
PROVIDERS: PCP Internal Medicine; Visit Provider Orthopaedic Surgery
DX: Z47.1 Aftercare following joint replacement surgery (principal); M17.11 Unilateral primary osteoarthritis, right knee; Z96.651 Presence of right artificial knee joint
CPT/HCPCS: 97110; 97112; 97116; 97140; 97161; 97530